=== PATIENT | male | born 1990 | race African-American/Black ===

== ENCOUNTER 2020-08-02 01:47 | Inpatient (IN) ==
[2020-08-02 02:06] LABS: Basophils # 0.1 10*3/uL (0.0-0.2); Basophils % 0.9 % (0.0-0.8); Eosinophils # 0.2 10*3/uL (0.0-0.87); Eosinophils % 3.9 % (0.00-10.9); Hematocrit 26.4 VOL% (42.0-52.0); Hemoglobin 8.4 GM/DL (14.0-18.0); Immature Granulocytes % 0.5 %; Immature Granulocytes Absolute 0.03 #; Lymphocytes # 1.7 10*3/uL (1.4-4.0); Lymphocytes % 30.7 % (21.2-54.2); Mean Corpuscular HGB Conc 31.8 GM/DL (32-36); Mean Corpuscular Volume 69.7 FL (87-102); Mean Platelet Volume 9.6 FL (9.6-12.0); Monocytes # 0.6 10*3/uL (0.11-0.8); Monocytes % 10.2 % (1.7-12.7); Neutrophils % 53.8 % (38.7-73.9); Platelet Count 393 T/CUMM (130-400); Red Blood Count 3.79 MC/CUMM (3.8-5.5); Red Cell Distribution Width 18.4 % (9.3-17.3); White Blood Count 5.7 T/CUMM (4-12)
[2020-08-02] MEDS ORDERED: hydrALAZINE 20 MG/1 ML VIAL IV STA ×2 (02:06→04:02)
[2020-08-02] MEDS ORDERED: MORPHINE 4 MG/1 ML VIAL IV STA (02:06)
[2020-08-02] MEDS ORDERED: ONDANSETRON 4 MG/2 ML VIAL IV STA (02:06)
[2020-08-02 02:17] LABS: INR 1.1; PT Patient Result 11.9 SECS (9.8-11.9); Partial Thromboplastin Time 35.3 SECS (23.9-33.8)
[2020-08-02] MEDS ORDERED: PROMETHAZINE 25 MG/1 ML VIAL IM STA (02:22)
[2020-08-02 02:40] LABS: Bilirubin,Total 0.5 MG/DL (0.2-1.0); Calcium 7.8 MG/DL (8.5-10.1); Osmolality,Calculated 288.1 MOS/KG (273-304); Potassium 4.6 MMOL/L (3.5-5.1); Total Protein 7.7 G/DL (6.4-8.3)
[2020-08-02 03:25] LABS: Hypochromia 3+; Ovalocytes 1+; Platelet Estimate Normal; Schistocytes Few; Target Cells 1+
[2020-08-02] MEDS ORDERED: HYDROmorphone 2 MG/1 ML VIAL IV STA (04:11)
[2020-08-02] MEDS ORDERED: DEXTROSE 50% 25 GM/50 ML VIAL IV PRN (04:42)
[2020-08-02] MEDS ORDERED: DOCUSATE SODIUM 100 MG CAPSULE PO PRN (04:42)
[2020-08-02] MEDS ORDERED: GLUCAGON 1 MG VIAL IM PRN (04:42)
[2020-08-02] MEDS ORDERED: ACETAMINOPHEN 325 MG TABLET PO PRN (04:42)
[2020-08-02] MEDS ORDERED: PROMETHAZINE 25 MG/1 ML VIAL ONE (09:16)
[2020-08-02] MEDS: MORPHINE 4 MG/1 ML VIAL IV PRN ×2 (09:32→18:56)
[2020-08-02] MEDS: PANTOPRAZOLE 40 MG TABLET PO SCH (09:32)
[2020-08-02] MEDS: hydrALAZINE 20 MG/1 ML VIAL IV PRN ×2 (09:32→16:50)
[2020-08-02 12:08] LABS: Hepatitis B Surface Ag Quant < 0.10 Index; Hepatitis B Surface Ag Result Negative (Negative)
[2020-08-02] MEDS: PROMETHAZINE 25 MG/1 ML VIAL IM PRN (20:56)
[2020-08-03] MEDS: MORPHINE 4 MG/1 ML VIAL IV PRN ×6 (00:24→23:47)
[2020-08-03] MEDS: hydrALAZINE 20 MG/1 ML VIAL IV PRN ×6 (00:26→16:49)
[2020-08-03 05:47] LABS: Basophils % 0.6 % (0.0-0.8); Eosinophils # 0.2 10*3/uL (0.0-0.87); Eosinophils % 3.5 % (0.00-10.9); Hematocrit 25.1 VOL% (42.0-52.0); Hemoglobin 7.8 GM/DL (14.0-18.0); Immature Granulocytes % 0.6 %; Immature Granulocytes Absolute 0.03 #; Lymphocytes # 1.6 10*3/uL (1.4-4.0); Lymphocytes % 29.2 % (21.2-54.2); Mean Corpuscular HGB Conc 31.1 GM/DL (32-36); Mean Corpuscular Volume 70.5 FL (87-102); Mean Platelet Volume 10.8 FL (9.6-12.0); Monocytes # 0.5 10*3/uL (0.11-0.8); Monocytes % 9.2 % (1.7-12.7); Neutrophils % 56.9 % (38.7-73.9); Platelet Count 335 T/CUMM (130-400); Red Blood Count 3.56 MC/CUMM (3.8-5.5); Red Cell Distribution Width 18.4 % (9.3-17.3); White Blood Count 5.4 T/CUMM (4-12)
[2020-08-03 06:15] LABS: Alanine Aminotransferase < 9 U/L (16-61); Albumin 1.8 G/DL (3.4-5.0); Alkaline Phosphatase 224 U/L (45-117); Aspartate Amino Transferase 29 U/L (0-37); Blood Urea Nitrogen 53 MG/DL (7-18); Calcium 7.8 MG/DL (8.5-10.1); Carbon Dioxide 23 MMOL/L (21-32); Chloride 102 MMOL/L (98-107); Estimated Glom Filtration Rate 11 ML/MIN; Glucose 97 MG/DL (74-106); Osmolality,Calculated 277.5 MOS/KG (273-304); Potassium 4.8 MMOL/L (3.5-5.1); Sodium 132 MMOL/L (136-145); Total Protein 7.8 G/DL (6.4-8.3)
[2020-08-03 08:42] LABS: Band Neutrophils 1 % (0-10); Eosinophils 9 % (0-10); Hypochromia 2+; Lymphocytes 25 % (20-55); Total Cells Counted 100
[2020-08-03 08:43] LABS: Microcytosis 1+; Platelet Estimate Normal; Target Cells Few
[2020-08-03] MEDS ORDERED: amLODIPine 5 MG TABLET PO SCH (09:00)
[2020-08-03] MEDS: lisinopriL 10 MG TABLET PO SCH (09:40)
[2020-08-03] MEDS: PANTOPRAZOLE 40 MG TABLET PO SCH (09:40)
[2020-08-03] MEDS: PROMETHAZINE 25 MG/1 ML VIAL IM PRN ×2 (13:23→23:46)
[2020-08-03] MEDS: ONDANSETRON 4 MG/2 ML VIAL IV PRN ×2 (16:53→21:23)
[2020-08-04] MEDS: MORPHINE 4 MG/1 ML VIAL IV PRN ×5 (05:10→23:24)
[2020-08-04] MEDS: PROMETHAZINE 25 MG/1 ML VIAL IM PRN ×3 (06:24→19:02)
[2020-08-04 07:35] LABS: Basophils % 0.4 % (0.0-0.8); Eosinophils # 0.2 10*3/uL (0.0-0.87); Eosinophils % 3.7 % (0.00-10.9); Hematocrit 25.8 VOL% (42.0-52.0); Hemoglobin 7.9 GM/DL (14.0-18.0); Immature Granulocytes % 0.2 %; Immature Granulocytes Absolute 0.01 #; Lymphocytes # 1.7 10*3/uL (1.4-4.0); Lymphocytes % 32.3 % (21.2-54.2); Mean Corpuscular HGB Conc 30.6 GM/DL (32-36); Mean Corpuscular Volume 71.7 FL (87-102); Mean Platelet Volume 9.7 FL (9.6-12.0); Monocytes # 0.6 10*3/uL (0.11-0.8); Monocytes % 10.2 % (1.7-12.7); Neutrophils % 53.2 % (38.7-73.9); Platelet Count 337 T/CUMM (130-400); Red Cell Distribution Width 18.5 % (9.3-17.3); White Blood Count 5.4 T/CUMM (4-12)
[2020-08-04 08:17] LABS: Calcium 8.1 MG/DL (8.5-10.1); Osmolality,Calculated 278.8 MOS/KG (273-304); Potassium 5.7 MMOL/L (3.5-5.1)
[2020-08-04] MEDS: lisinopriL 10 MG TABLET PO SCH (08:23)
[2020-08-04] MEDS: PANTOPRAZOLE 40 MG TABLET PO SCH (08:23)
[2020-08-04] MEDS: hydrALAZINE 20 MG/1 ML VIAL IV PRN (08:23)
[2020-08-04] MEDS ORDERED: SODIUM POLYSTYRENE SULFATE 15 GM/60 ML BOTTLE PO ONE (08:43)
[2020-08-04] MEDS ORDERED: hydrALAZINE 25 MG TABLET PO SCH (09:00)
[2020-08-04] MEDS: ONDANSETRON 4 MG/2 ML VIAL IV PRN (14:47)
[2020-08-04] MEDS: SPIRONOLACTONE/HCTZ 25-25 MG TABLET PO SCH (15:12)
[2020-08-04] MEDS ORDERED: amLODIPine 10 MG TABLET PO ONE (17:55)
[2020-08-05] MEDS: PROMETHAZINE 25 MG/1 ML VIAL IM PRN ×4 (01:54→23:16)
[2020-08-05] MEDS: MORPHINE 4 MG/1 ML VIAL IV PRN ×5 (03:18→21:33)
[2020-08-05] MEDS: ONDANSETRON 4 MG/2 ML VIAL IV PRN ×3 (03:23→12:18)
[2020-08-05 05:44] LABS: Basophils % 0.4 % (0.0-0.8); Eosinophils # 0.3 10*3/uL (0.0-0.87); Eosinophils % 4.5 % (0.00-10.9); Hematocrit 24.4 VOL% (42.0-52.0); Hemoglobin 7.6 GM/DL (14.0-18.0); Immature Granulocytes % 0.5 %; Immature Granulocytes Absolute 0.03 #; Lymphocytes # 1.6 10*3/uL (1.4-4.0); Lymphocytes % 28.1 % (21.2-54.2); Mean Corpuscular HGB Conc 31.1 GM/DL (32-36); Mean Corpuscular Volume 71.8 FL (87-102); Mean Platelet Volume 9.7 FL (9.6-12.0); Monocytes # 0.6 10*3/uL (0.11-0.8); Neutrophils % 56.5 % (38.7-73.9); Platelet Count 336 T/CUMM (130-400); Red Cell Distribution Width 18.4 % (9.3-17.3); White Blood Count 5.6 T/CUMM (4-12)
[2020-08-05 06:10] LABS: Calcium 7.8 MG/DL (8.5-10.1); Osmolality,Calculated 287.4 MOS/KG (273-304); Potassium 5.8 MMOL/L (3.5-5.1)
[2020-08-05 07:15] LABS: Hypochromia 4+; Microcytosis 3+; Platelet Estimate Normal; Polychromasia Slight; Target Cells 2+
[2020-08-05] MEDS: PANTOPRAZOLE 40 MG TABLET PO SCH (08:15)
[2020-08-05] MEDS: SPIRONOLACTONE/HCTZ 25-25 MG TABLET PO SCH ×2 (08:15→15:07)
[2020-08-05] MEDS: amLODIPine 10 MG TABLET PO SCH (08:15)
[2020-08-05] MEDS: MELATONIN 3 MG TABLET PO SCH (20:40)
[2020-08-06] MEDS: MORPHINE 4 MG/1 ML VIAL IV PRN ×5 (01:46→19:44)
[2020-08-06] MEDS: ONDANSETRON 4 MG/2 ML VIAL IV PRN ×3 (01:51→15:12)
[2020-08-06] MEDS: PROMETHAZINE 25 MG/1 ML VIAL IM PRN ×3 (05:29→19:48)
[2020-08-06 06:24] LABS: Basophils % 0.2 % (0.0-0.8); Eosinophils # 0.1 10*3/uL (0.0-0.87); Eosinophils % 2.8 % (0.00-10.9); Hematocrit 25.9 VOL% (42.0-52.0); Hemoglobin 7.7 GM/DL (14.0-18.0); Immature Granulocytes % 0.5 %; Immature Granulocytes Absolute 0.02 #; Lymphocytes # 1.2 10*3/uL (1.4-4.0); Lymphocytes % 27.9 % (21.2-54.2); Mean Corpuscular HGB Conc 29.7 GM/DL (32-36); Mean Corpuscular Volume 72.5 FL (87-102); Mean Platelet Volume 10.2 FL (9.6-12.0); Monocytes # 0.5 10*3/uL (0.11-0.8); Monocytes % 11.8 % (1.7-12.7); Neutrophils % 56.8 % (38.7-73.9); Platelet Count 316 T/CUMM (130-400); Red Blood Count 3.57 MC/CUMM (3.8-5.5); Red Cell Distribution Width 18.2 % (9.3-17.3); White Blood Count 4.3 T/CUMM (4-12)
[2020-08-06 06:36] LABS: Calcium 7.8 MG/DL (8.5-10.1); Osmolality,Calculated 284.1 MOS/KG (273-304)
[2020-08-06 06:58] LABS: Eosinophils 1 % (0-10); Hypochromia 2+; Lymphocytes 26 % (20-55); Microcytosis 1+; Ovalocytes Slight; Platelet Estimate Adequate; Total Cells Counted 100
[2020-08-06] MEDS: amLODIPine 10 MG TABLET PO SCH (08:10)
[2020-08-06] MEDS: PANTOPRAZOLE 40 MG TABLET PO SCH (08:10)
[2020-08-06] MEDS: SPIRONOLACTONE/HCTZ 25-25 MG TABLET PO SCH ×2 (08:11→16:32)
[2020-08-06] MEDS ORDERED: ALBUMIN 25% 12.5 GM/50 ML VIAL IV ONE (09:43)
[2020-08-06] MEDS ORDERED: ALBUMIN 25% 12.5 GM in PREMIX 1 EACH IV ONE (10:00)
[2020-08-06] MEDS ORDERED: SODIUM CHLORIDE 0.9% 1,000 ML IV PRN (10:16)
[2020-08-06] MEDS ORDERED: cefTRIAXone 1,000 MG in SYRINGE 1 EACH IV SCH (17:00)
[2020-08-06] MEDS: MELATONIN 3 MG TABLET PO SCH (20:22)
[2020-08-07] MEDS: MORPHINE 4 MG/1 ML VIAL IV PRN ×4 (00:47→13:59)
[2020-08-07] MEDS: PROMETHAZINE 25 MG/1 ML VIAL IM PRN ×2 (04:31→13:59)
[2020-08-07 06:45] LABS: % Iron Saturation 9.1 % (18-50); Ferritin 632.9 ng/ml (26-388)
[2020-08-07 07:11] LABS: Folate 5.8 NG/ML (5.4-24.0)
[2020-08-07] MEDS: ONDANSETRON 4 MG/2 ML VIAL IV PRN ×2 (08:13→15:43)
[2020-08-07] MEDS: amLODIPine 10 MG TABLET PO SCH (08:13)
[2020-08-07] MEDS: SPIRONOLACTONE/HCTZ 25-25 MG TABLET PO SCH ×3 (08:13→15:33)
[2020-08-07] MEDS: PANTOPRAZOLE 40 MG TABLET PO SCH (08:13)
[2020-08-07] MEDS: FERROUS SULFATE 325 MG TABLET PO SCH ×2 (08:21→16:05)
[2020-08-07] MEDS ORDERED: cefTRIAXone 1,000 MG in SYRINGE 1 EACH IV SCH (15:00)
[2020-08-07 16:45] VITALS: BP 159/96
[2020-08-07 19:08] LABS: HIV Antigen/Antibody Result Nonreactive (Nonreactive); Hepatitis B Surface Ab Result Positive
== END 2020-08-07 18:15 | disposition home or self-care (01) ==
LOC: EDUNIT# → N.3E 01:47 → N.ED 01:47 → SUATTDRO 04:18 → N.3E 05:05 → SUATTDRO 08-05 13:24
PROVIDERS: ADMIT Family Medicine; ATTEND Internal Medicine

== ENCOUNTER 2020-08-12 21:08 | Inpatient (IN) ==
[2020-08-12] MEDS ORDERED: hydrALAZINE 20 MG/1 ML VIAL IV STA (21:47)
[2020-08-12] MEDS ORDERED: ONDANSETRON 4 MG/2 ML VIAL IV STA (21:54)
[2020-08-12] MEDS ORDERED: MORPHINE 4 MG/1 ML VIAL IV STA (21:54)
[2020-08-12] MEDS ORDERED: NITROGLYCERIN 2% OINT 1 INCH/GM PACK TOP STA (21:55)
[2020-08-12] MEDS ORDERED: METOPROLOL TARTRATE 5 MG/5 ML VIAL IV STA (21:58)
[2020-08-12] MEDS ORDERED: METOPROLOL TARTRATE 5 MG/5 ML VIAL IV ONE (21:59)
[2020-08-12 22:02] LABS: Basophils % 0.5 % (0.0-0.8); Eosinophils # 0.2 10*3/uL (0.0-0.87); Eosinophils % 2.2 % (0.00-10.9); Hematocrit 31.5 VOL% (42.0-52.0); Hemoglobin 10.1 GM/DL (14.0-18.0); Immature Granulocytes % 0.8 %; Immature Granulocytes Absolute 0.06 #; Lymphocytes # 1.7 10*3/uL (1.4-4.0); Lymphocytes % 22.3 % (21.2-54.2); Mean Corpuscular HGB Conc 32.1 GM/DL (32-36); Mean Corpuscular Volume 70.9 FL (87-102); Mean Platelet Volume 9.6 FL (9.6-12.0); Neutrophils % 64.2 % (38.7-73.9); Platelet Count 328 T/CUMM (130-400); Red Blood Count 4.44 MC/CUMM (3.8-5.5); Red Cell Distribution Width 21.4 % (9.3-17.3); White Blood Count 7.6 T/CUMM (4-12)
[2020-08-12] MEDS ORDERED: PROMETHAZINE 25 MG/1 ML VIAL IM STA (22:03)
[2020-08-12 22:09] LABS: INR 1.4; PT Patient Result 14.8 SECS (9.8-11.9)
[2020-08-12 22:15] LABS: Alanine Aminotransferase < 9 U/L (16-61); Albumin 1.8 G/DL (3.4-5.0); Alkaline Phosphatase 252 U/L (45-117); Aspartate Amino Transferase 16 U/L (0-37); Blood Urea Nitrogen 75 MG/DL (7-18); Calcium 7.8 MG/DL (8.5-10.1); Estimated Glom Filtration Rate 8 ML/MIN; Glucose 81 MG/DL (74-106); Osmolality,Calculated 286.4 MOS/KG (273-304); Total Protein 8.4 G/DL (6.4-8.3)
[2020-08-12] MEDS ORDERED: MAGNESIUM SULF RIDER 2 GM in PREMIX 1 EACH IV STA (22:20)
[2020-08-13] MEDS ORDERED: PIPERACILLIN/TAZOBACTAM 3,375 MG in SODIUM CHLORIDE 0.9% 100 ML IV STA (00:11)
[2020-08-13] MEDS ORDERED: niCARdipine INJ 25 MG in SODIUM CHLORIDE 0.9% 240 ML IV PRN (00:15)
[2020-08-13] MEDS ORDERED: PIPERACILLIN/TAZOBACTAM 3,375 MG VIAL IV ONE (00:44)
[2020-08-13] MEDS ORDERED: niCARdipine 25 MG/10 ML VIAL IV ONE (00:44)
[2020-08-13] MEDS ORDERED: MORPHINE 4 MG/1 ML VIAL IV STA (01:28)
[2020-08-13] MEDS ORDERED: LABETALOL 20 MG/4 ML SYRINGE IV ONE (02:20)
[2020-08-13] MEDS ORDERED: LABETALOL 20 MG/4 ML SYRINGE IV STA (02:23)
[2020-08-13] MEDS ORDERED: GLUCAGON 1 MG VIAL IM PRN (03:46)
[2020-08-13] MEDS ORDERED: DEXTROSE 50% 25 GM/50 ML VIAL IV PRN (03:46)
[2020-08-13] MEDS ORDERED: NICOTINE 21 MG/24 HR PATCH TRANSDERM PRN (03:46)
[2020-08-13] MEDS ORDERED: LABETALOL 20 MG/4 ML SYRINGE IV PRN (03:54)
[2020-08-13] MEDS: MORPHINE 4 MG/1 ML VIAL IV PRN ×4 (05:23→22:18)
[2020-08-13] MEDS: INSULIN REGULAR 100 UNIT/ML SUBCUT SCH ×4 (08:52→22:25)
[2020-08-13] MEDS: METOPROLOL TARTRATE 25 MG TABLET PO SCH ×2 (10:24→21:11)
[2020-08-13] MEDS: amLODIPine 10 MG TABLET PO SCH (10:45)
[2020-08-13] MEDS: PIPERACILLIN/TAZOBACTAM 3,375 MG in SODIUM CHLORIDE 0.9% 100 ML IV SCH (14:41)
[2020-08-13] MEDS: SPIRONOLACTONE/HCTZ 25-25 MG TABLET PO SCH (15:06)
[2020-08-13] MEDS: ONDANSETRON 4 MG/2 ML VIAL IV PRN ×2 (15:06→23:26)
[2020-08-14] MEDS: PIPERACILLIN/TAZOBACTAM 3,375 MG in SODIUM CHLORIDE 0.9% 100 ML IV SCH ×2 (01:50→12:23)
[2020-08-14] MEDS: MORPHINE 4 MG/1 ML VIAL IV PRN ×4 (04:16→21:16)
[2020-08-14] MEDS: ONDANSETRON 4 MG/2 ML VIAL IV PRN ×4 (04:16→21:15)
[2020-08-14] MEDS: INSULIN REGULAR 100 UNIT/ML SUBCUT SCH ×4 (07:48→21:17)
[2020-08-14] MEDS: METOPROLOL TARTRATE 25 MG TABLET PO SCH ×2 (08:36→21:16)
[2020-08-14] MEDS: SPIRONOLACTONE/HCTZ 25-25 MG TABLET PO SCH ×2 (08:36→15:37)
[2020-08-14] MEDS: amLODIPine 10 MG TABLET PO SCH (08:36)
[2020-08-15] MEDS: PIPERACILLIN/TAZOBACTAM 3,375 MG in SODIUM CHLORIDE 0.9% 100 ML IV SCH ×2 (00:02→16:49)
[2020-08-15] MEDS: ONDANSETRON 4 MG/2 ML VIAL IV PRN ×2 (02:48→08:58)
[2020-08-15] MEDS: MORPHINE 4 MG/1 ML VIAL IV PRN ×4 (02:48→21:53)
[2020-08-15 05:54] LABS: Basophils # 0.1 10*3/uL (0.0-0.2); Basophils % 0.8 % (0.0-0.8); Eosinophils # 0.3 10*3/uL (0.0-0.87); Eosinophils % 4.4 % (0.00-10.9); Hematocrit 32.1 VOL% (42.0-52.0); Hemoglobin 10.1 GM/DL (14.0-18.0); Immature Granulocytes % 1.2 %; Immature Granulocytes Absolute 0.08 #; Lymphocytes # 1.7 10*3/uL (1.4-4.0); Lymphocytes % 25.8 % (21.2-54.2); Mean Corpuscular HGB Conc 31.5 GM/DL (32-36); Mean Corpuscular Volume 71.3 FL (87-102); Mean Platelet Volume 9.7 FL (9.6-12.0); Monocytes % 13.7 % (1.7-12.7); Neutrophils % 54.1 % (38.7-73.9); Platelet Count 367 T/CUMM (130-400); Red Cell Distribution Width 21.4 % (9.3-17.3); White Blood Count 6.5 T/CUMM (4-12)
[2020-08-15 06:13] LABS: Calcium 8.1 MG/DL (8.5-10.1); Osmolality,Calculated 278.4 MOS/KG (273-304)
[2020-08-15 06:19] LABS: Eosinophils 6 % (0-10); Lymphocytes 26 % (20-55); Segmented Neutrophils 56 % (50-85); Total Cells Counted 100
[2020-08-15 06:20] LABS: Hypochromasia 1+; Platelet Estimate Adequate; Target Cells Slight
[2020-08-15 06:21] LABS: Microcytosis Slight
[2020-08-15] MEDS: METOPROLOL TARTRATE 25 MG TABLET PO SCH ×2 (08:57→21:53)
[2020-08-15] MEDS: SPIRONOLACTONE/HCTZ 25-25 MG TABLET PO SCH ×2 (08:57→16:49)
[2020-08-15] MEDS: amLODIPine 10 MG TABLET PO SCH (08:58)
[2020-08-15] MEDS: INSULIN REGULAR 100 UNIT/ML SUBCUT SCH ×4 (09:03→21:53)
[2020-08-15] MEDS ORDERED: SODIUM POLYSTYRENE SULFATE 15 GM/60 ML BOTTLE PO STA (14:00)
[2020-08-15 16:03] LABS: Hepatitis B Core IgM Quant 0.06 Index; Hepatitis B Surface Ag Quant < 0.10 Index; Hepatitis B Surface Ag Result Negative (Negative); Hepatitis C Virus Ab Quant 0.04 Index; Hepatitis C Virus Ab Result Negative (Negative)
[2020-08-15] MEDS: PROMETHAZINE 25 MG/1 ML VIAL IM PRN ×2 (16:49→23:10)
[2020-08-16] MEDS: PIPERACILLIN/TAZOBACTAM 3,375 MG in SODIUM CHLORIDE 0.9% 100 ML IV SCH ×2 (03:13→12:19)
[2020-08-16] MEDS: MORPHINE 4 MG/1 ML VIAL IV PRN ×5 (03:13→23:35)
[2020-08-16] MEDS: PROMETHAZINE 25 MG/1 ML VIAL IM PRN ×3 (05:07→18:47)
[2020-08-16 05:48] LABS: Basophils % 0.4 % (0.0-0.8); Eosinophils # 0.3 10*3/uL (0.0-0.87); Hematocrit 28.8 VOL% (42.0-52.0); Hemoglobin 9.1 GM/DL (14.0-18.0); Immature Granulocytes % 0.8 %; Immature Granulocytes Absolute 0.04 #; Lymphocytes # 1.6 10*3/uL (1.4-4.0); Lymphocytes % 31.5 % (21.2-54.2); Mean Corpuscular HGB Conc 31.6 GM/DL (32-36); Mean Corpuscular Volume 71.6 FL (87-102); Mean Platelet Volume 10.1 FL (9.6-12.0); Monocytes % 10.7 % (1.7-12.7); Neutrophils % 51.6 % (38.7-73.9); Platelet Count 369 T/CUMM (130-400); Red Blood Count 4.02 MC/CUMM (3.8-5.5); Red Cell Distribution Width 21.2 % (9.3-17.3); White Blood Count 5.2 T/CUMM (4-12)
[2020-08-16 06:13] LABS: Eosinophils 5 % (0-10); Lymphocytes 35 % (20-55); Platelet Estimate Normal; Segmented Neutrophils 53 % (50-85); Total Cells Counted 100
[2020-08-16 06:14] LABS: Hypochromasia Slight; Microcytosis 1+
[2020-08-16] MEDS: ONDANSETRON 4 MG/2 ML VIAL IV PRN ×2 (07:29→21:50)
[2020-08-16] MEDS: INSULIN REGULAR 100 UNIT/ML SUBCUT SCH ×4 (07:58→23:35)
[2020-08-16] MEDS: amLODIPine 10 MG TABLET PO SCH (08:54)
[2020-08-16] MEDS: METOPROLOL TARTRATE 25 MG TABLET PO SCH ×2 (08:55→23:35)
[2020-08-16] MEDS: SPIRONOLACTONE/HCTZ 25-25 MG TABLET PO SCH ×2 (08:55→16:28)
[2020-08-17] MEDS: PROMETHAZINE 25 MG/1 ML VIAL IM PRN ×3 (05:33→18:12)
[2020-08-17] MEDS: MORPHINE 4 MG/1 ML VIAL IV PRN ×4 (05:33→21:24)
[2020-08-17 06:42] LABS: Basophils % 0.5 % (0.0-0.8); Eosinophils # 0.2 10*3/uL (0.0-0.87); Eosinophils % 3.5 % (0.00-10.9); Hematocrit 30.1 VOL% (42.0-52.0); Hemoglobin 9.3 GM/DL (14.0-18.0); Immature Granulocytes % 0.5 %; Immature Granulocytes Absolute 0.03 #; Lymphocytes # 1.8 10*3/uL (1.4-4.0); Mean Corpuscular HGB Conc 30.9 GM/DL (32-36); Mean Corpuscular Volume 72.5 FL (87-102); Mean Platelet Volume 9.5 FL (9.6-12.0); Monocytes % 10.3 % (1.7-12.7); Neutrophils % 53.2 % (38.7-73.9); Platelet Count 364 T/CUMM (130-400); Red Blood Count 4.15 MC/CUMM (3.8-5.5); Red Cell Distribution Width 21.5 % (9.3-17.3); White Blood Count 5.8 T/CUMM (4-12)
[2020-08-17 06:57] LABS: Calcium 8.1 MG/DL (8.5-10.1); Osmolality,Calculated 273.2 MOS/KG (273-304)
[2020-08-17 07:45] LABS: Eosinophils 1 % (0-10); Lymphocytes 35 % (20-55); Segmented Neutrophils 57 % (50-85); Total Cells Counted 100
[2020-08-17 07:46] LABS: Hypochromasia 4+; Microcytosis 2+; Ovalocytes Few; Platelet Estimate Normal; Polychromasia Slight; Reactive Lymphocytes Few; Schistocytes Slight; Target Cells Few; Tear Drop Cells Few
[2020-08-17] MEDS: INSULIN REGULAR 100 UNIT/ML SUBCUT SCH ×4 (10:04→21:26)
[2020-08-17] MEDS: SPIRONOLACTONE/HCTZ 25-25 MG TABLET PO SCH ×2 (10:05→15:50)
[2020-08-17] MEDS: METOPROLOL TARTRATE 25 MG TABLET PO SCH ×2 (10:06→21:26)
[2020-08-17] MEDS: amLODIPine 10 MG TABLET PO SCH (10:06)
[2020-08-17] MEDS: PIPERACILLIN/TAZOBACTAM 3,375 MG in SODIUM CHLORIDE 0.9% 100 ML IV SCH ×2 (14:47)
[2020-08-18] MEDS: PROMETHAZINE 25 MG/1 ML VIAL IM PRN ×3 (00:22→12:38)
[2020-08-18] MEDS: PIPERACILLIN/TAZOBACTAM 3,375 MG in SODIUM CHLORIDE 0.9% 100 ML IV SCH ×2 (00:22→12:40)
[2020-08-18] MEDS: MORPHINE 4 MG/1 ML VIAL IV PRN ×3 (03:36→12:36)
[2020-08-18] MEDS: ONDANSETRON 4 MG/2 ML VIAL IV PRN (03:37)
[2020-08-18 06:05] LABS: Basophils % 0.3 % (0.0-0.8); Eosinophils # 0.2 10*3/uL (0.0-0.87); Eosinophils % 2.5 % (0.00-10.9); Hematocrit 26.7 VOL% (42.0-52.0); Hemoglobin 8.2 GM/DL (14.0-18.0); Immature Granulocytes % 0.5 %; Immature Granulocytes Absolute 0.03 #; Lymphocytes # 1.8 10*3/uL (1.4-4.0); Lymphocytes % 29.5 % (21.2-54.2); Mean Corpuscular HGB Conc 30.7 GM/DL (32-36); Mean Platelet Volume 9.5 FL (9.6-12.0); Monocytes % 9.1 % (1.7-12.7); Neutrophils % 58.1 % (38.7-73.9); Platelet Count 289 T/CUMM (130-400); Red Blood Count 3.61 MC/CUMM (3.8-5.5); Red Cell Distribution Width 21.2 % (9.3-17.3); White Blood Count 6.1 T/CUMM (4-12)
[2020-08-18 06:35] LABS: Calcium 7.6 MG/DL (8.5-10.1); Osmolality,Calculated 272.2 MOS/KG (273-304)
[2020-08-18 07:42] LABS: Anisocytosis 1+; Band Neutrophils 2 % (0-10); Eosinophils 2 % (0-10); Hypochromasia 2+; Lymphocytes 30 % (20-55); Macrocytosis 1+; Platelet Estimate Normal; Segmented Neutrophils 55 % (50-85); Target Cells Few; Total Cells Counted 100
[2020-08-18] MEDS: INSULIN REGULAR 100 UNIT/ML SUBCUT SCH ×2 (08:46→12:35)
[2020-08-18] MEDS: SPIRONOLACTONE/HCTZ 25-25 MG TABLET PO SCH ×2 (08:47→15:28)
[2020-08-18] MEDS: amLODIPine 10 MG TABLET PO SCH (08:47)
[2020-08-18] MEDS: METOPROLOL TARTRATE 25 MG TABLET PO SCH (08:47)
[2020-08-18 13:17] VITALS: BP 133/64
== END 2020-08-18 16:55 | disposition home or self-care (01) | DRG 371 ==
LOC: EDBD → EDUNIT# → N.ED 21:08 → N.EDINP 08-13 03:46 → N.TELEN 08-13 04:21
PROVIDERS: ADMIT Emergency Medicine; ATTEND Emergency Medicine

== ENCOUNTER 2020-09-02 16:43 | Observation (INO) ==
[2020-09-02] MEDS ORDERED: SODIUM CHLORIDE 0.9% 1,000 ML IV STA (17:46)
[2020-09-02] MEDS ORDERED: ONDANSETRON 4 MG/2 ML VIAL IV STA (17:48)
[2020-09-02] MEDS ORDERED: MORPHINE 4 MG/1 ML VIAL IV STA ×2 (17:48→20:51)
[2020-09-02 18:00] LABS: Basophils # 0.1 10*3/uL (0.0-0.2); Basophils % 0.9 % (0.0-0.8); Eosinophils # 0.4 10*3/uL (0.0-0.87); Hematocrit 25.8 VOL% (42.0-52.0); Hemoglobin 7.7 GM/DL (14.0-18.0); Immature Granulocytes % 0.2 %; Immature Granulocytes Absolute 0.01 #; Lymphocytes # 2.2 10*3/uL (1.4-4.0); Lymphocytes % 37.9 % (21.2-54.2); Mean Corpuscular HGB Conc 29.8 GM/DL (32-36); Mean Corpuscular Volume 75.7 FL (87-102); Platelet Count 256 T/CUMM (130-400); Red Blood Count 3.41 MC/CUMM (3.8-5.5); Red Cell Distribution Width 22.5 % (9.3-17.3); White Blood Count 5.8 T/CUMM (4-12)
[2020-09-02] MEDS ORDERED: PROMETHAZINE 25 MG/1 ML VIAL ONE (18:10)
[2020-09-02] MEDS ORDERED: PROMETHAZINE INJ 12.5 MG in SODIUM CHLORIDE 0.9% 50 ML IV STA (18:13)
[2020-09-02 18:16] LABS: INR 1.4; PT Patient Result 14.3 SECS (9.8-11.9); Partial Thromboplastin Time 34.7 SECS (23.9-33.8)
[2020-09-02 18:23] LABS: Atypical Lymphocytes Few; Eosinophils 5 % (0-10); Lymphocytes 41 % (20-55); Platelet Estimate Adequate; Reactive Lymphocytes Few; Segmented Neutrophils 47 % (50-85); Total Cells Counted 100
[2020-09-02 18:24] LABS: Hypochromasia 2+; Microcytosis 2+; Target Cells 1+
[2020-09-02 18:25] LABS: Anisocytosis Slight; Schistocytes Few
[2020-09-02 18:32] LABS: Albumin 2.2 G/DL (3.4-5.0); Bilirubin,Total 0.6 MG/DL (0.2-1.0); Calcium 7.7 MG/DL (8.5-10.1); Osmolality,Calculated 277.4 MOS/KG (273-304); Potassium 4.9 MMOL/L (3.5-5.1); Total Protein 9.2 G/DL (6.4-8.3)
[2020-09-02] MEDS ORDERED: hydrALAZINE 20 MG/1 ML VIAL IV STA (19:20)
[2020-09-02] MEDS ORDERED: DILTIAZEM 50 MG/10 ML VIAL IV STA (20:51)
[2020-09-03] MEDS ORDERED: NICOTINE 21 MG/24 HR PATCH TRANSDERM PRN (00:02)
[2020-09-03] MEDS ORDERED: BISACODYL 5 MG TABLET PO PRN (00:02)
[2020-09-03] MEDS ORDERED: PROMETHAZINE 25 MG/1 ML VIAL IM PRN (00:02)
[2020-09-03] MEDS ORDERED: guaiFENesin/DM ER 600-30 MG TABLET PO PRN (00:02)
[2020-09-03] MEDS ORDERED: GLUCAGON 1 MG VIAL IM PRN (00:02)
[2020-09-03] MEDS ORDERED: DEXTROSE 50% 25 GM/50 ML VIAL IV PRN (00:02)
[2020-09-03] MEDS ORDERED: diphenhydrAMINE CAP 25 MG CAPSULE PO PRN (00:02)
[2020-09-03] MEDS ORDERED: ACETAMINOPHEN 325 MG TABLET PO PRN (00:02)
[2020-09-03] MEDS: ONDANSETRON 4 MG/2 ML VIAL IV PRN ×3 (01:30→12:46)
[2020-09-03] MEDS: MORPHINE 4 MG/1 ML VIAL IV PRN ×2 (01:31→21:43)
[2020-09-03] MEDS: hydrALAZINE 20 MG/1 ML VIAL IV PRN ×2 (02:40→15:38)
[2020-09-03] MEDS: cefTRIAXone 1,000 MG in SYRINGE 1 EACH IV SCH ×2 (03:36→23:50)
[2020-09-03] MEDS: metroNIDAZOLE INJ 500 MG in PREMIX 1 EACH IV SCH ×4 (03:37→23:50)
[2020-09-03] MEDS: METOPROLOL TARTRATE 25 MG TABLET PO SCH ×3 (03:37→21:21)
[2020-09-03] MEDS ORDERED: LABETALOL 20 MG/4 ML SYRINGE IV ONE (04:35)
[2020-09-03 05:29] LABS: Basophils # 0.1 10*3/uL (0.0-0.2); Basophils % 1.1 % (0.0-0.8); Eosinophils # 0.3 10*3/uL (0.0-0.87); Eosinophils % 5.5 % (0.00-10.9); Hematocrit 25.2 VOL% (42.0-52.0); Hemoglobin 7.9 GM/DL (14.0-18.0); Immature Granulocytes % 0.4 %; Immature Granulocytes Absolute 0.02 #; Lymphocytes # 2.1 10*3/uL (1.4-4.0); Lymphocytes % 38.5 % (21.2-54.2); Mean Corpuscular HGB Conc 31.3 GM/DL (32-36); Mean Corpuscular Volume 73.3 FL (87-102); Mean Platelet Volume 10.6 FL (9.6-12.0); Monocytes % 8.6 % (1.7-12.7); Neutrophils % 45.9 % (38.7-73.9); Platelet Count 283 T/CUMM (130-400); Red Blood Count 3.44 MC/CUMM (3.8-5.5); Red Cell Distribution Width 22.1 % (9.3-17.3); White Blood Count 5.5 T/CUMM (4-12)
[2020-09-03 05:57] LABS: Hypochromasia 2+
[2020-09-03 05:58] LABS: Anisocytosis 1+; Macrocytosis 1+; Ovalocytes Slight; Platelet Estimate Normal; Target Cells Few
[2020-09-03 06:09] LABS: Osmolality,Calculated 277.5 MOS/KG (273-304); Potassium 5.2 MMOL/L (3.5-5.1)
[2020-09-03] MEDS: amLODIPine 10 MG TABLET PO SCH (08:46)
[2020-09-03] MEDS: PANTOPRAZOLE 40 MG TABLET PO SCH (08:47)
[2020-09-04] MEDS: ONDANSETRON 4 MG/2 ML VIAL IV PRN ×2 (03:25→09:55)
[2020-09-04] MEDS: MORPHINE 4 MG/1 ML VIAL IV PRN (03:27)
[2020-09-04] MEDS: metroNIDAZOLE INJ 500 MG in PREMIX 1 EACH IV SCH ×2 (06:45→14:35)
[2020-09-04 07:31] LABS: Basophils % 0.7 % (0.0-0.8); Eosinophils # 0.5 10*3/uL (0.0-0.87); Eosinophils % 8.2 % (0.00-10.9); Hematocrit 24.8 VOL% (42.0-52.0); Hemoglobin 7.4 GM/DL (14.0-18.0); Immature Granulocytes % 0.2 %; Immature Granulocytes Absolute 0.01 #; Lymphocytes # 1.4 10*3/uL (1.4-4.0); Lymphocytes % 22.8 % (21.2-54.2); Mean Corpuscular HGB Conc 29.8 GM/DL (32-36); Mean Corpuscular Volume 75.4 FL (87-102); Monocytes % 8.7 % (1.7-12.7); Neutrophils % 59.4 % (38.7-73.9); Platelet Count 253 T/CUMM (130-400); Red Blood Count 3.29 MC/CUMM (3.8-5.5); Red Cell Distribution Width 22.1 % (9.3-17.3)
[2020-09-04 07:52] LABS: Band Neutrophils 2 % (0-10); Calcium 7.4 MG/DL (8.5-10.1); Eosinophils 9 % (0-10); Lymphocytes 15 % (20-55); Osmolality,Calculated 279.2 MOS/KG (273-304); Potassium 4.4 MMOL/L (3.5-5.1); Segmented Neutrophils 68 % (50-85); Total Cells Counted 100
[2020-09-04 07:53] LABS: Anisocytosis 2+; Hypochromasia 2+; Macrocytosis 1+; Platelet Estimate Normal; Polychromasia Slight; Target Cells Few
[2020-09-04 07:54] LABS: Poikilocytosis Slight
[2020-09-04] MEDS ORDERED: TISSUE ADHESIVE 1 EACH APPLICATOR TOP ONE (08:14)
[2020-09-04] MEDS: METOPROLOL TARTRATE 25 MG TABLET PO SCH (09:18)
[2020-09-04] MEDS: amLODIPine 10 MG TABLET PO SCH (09:18)
[2020-09-04] MEDS: PANTOPRAZOLE 40 MG TABLET PO SCH (09:18)
[2020-09-04 09:40] LABS: INR 1.4; PT Patient Result 14.6 SECS (9.8-11.9)
[2020-09-04] MEDS ORDERED: MAGNESIUM SULF RIDER 4 GM in PREMIX 1 EACH IV PRN (10:38)
[2020-09-04] MEDS ORDERED: MAGNESIUM SULF RIDER 2 GM in PREMIX 1 EACH IV PRN (10:38)
[2020-09-04 12:07] VITALS: BP 138/95
== END 2020-09-04 14:51 | disposition home or self-care (01) ==
LOC: N.ED 16:43 → N.EDINP 16:43 → N.TELEN 09-03 02:07
PROVIDERS: ADMIT Internal Medicine; ATTEND Internal Medicine

== ENCOUNTER 2020-09-13 06:06 | Observation (INO) ==
[2020-09-13] MEDS ORDERED: ONDANSETRON 4 MG/2 ML VIAL IV STA (06:32)
[2020-09-13] MEDS ORDERED: PROMETHAZINE 25 MG/1 ML VIAL IM STA (06:42)
[2020-09-13] MEDS ORDERED: PROMETHAZINE 25 MG/1 ML VIAL ONE (06:43)
[2020-09-13 06:49] LABS: Basophils % 0.4 % (0.0-0.8); Eosinophils # 0.2 10*3/uL (0.0-0.87); Eosinophils % 4.4 % (0.00-10.9); Hemoglobin 7.6 GM/DL (14.0-18.0); Immature Granulocytes % 0.2 %; Immature Granulocytes Absolute 0.01 #; Lymphocytes # 1.9 10*3/uL (1.4-4.0); Lymphocytes % 36.6 % (21.2-54.2); Mean Corpuscular HGB Conc 30.4 GM/DL (32-36); Mean Platelet Volume 9.6 FL (9.6-12.0); Monocytes % 10.4 % (1.7-12.7); Platelet Count 159 T/CUMM (130-400); Red Blood Count 3.38 MC/CUMM (3.8-5.5); Red Cell Distribution Width 21.5 % (9.3-17.3); White Blood Count 5.3 T/CUMM (4-12)
[2020-09-13 07:10] LABS: Eosinophils 8 % (0-10); Hypochromasia 1+; Lymphocytes 31 % (20-55); Microcytosis 1+; Platelet Estimate Normal; Segmented Neutrophils 51 % (50-85); Total Cells Counted 100
[2020-09-13 07:11] LABS: INR 1.3; PT Patient Result 13.8 SECS (9.8-11.9); Partial Thromboplastin Time 31.3 SECS (23.9-33.8)
[2020-09-13 07:12] LABS: Bilirubin,Total 0.6 MG/DL (0.2-1.0); Osmolality,Calculated 275.2 MOS/KG (273-304); Potassium 4.4 MMOL/L (3.5-5.1); Total Protein 8.8 G/DL (6.4-8.3)
[2020-09-13] MEDS ORDERED: TISSUE ADHESIVE 1 EACH APPLICATOR TOP ONE (07:49)
[2020-09-13] MEDS ORDERED: HYDROmorphone 2 MG/1 ML VIAL IV STA (08:04)
[2020-09-13] MEDS ORDERED: hydrALAZINE 20 MG/1 ML VIAL IV STA (08:35)
[2020-09-13] MEDS ORDERED: hydrALAZINE 20 MG/1 ML VIAL ONE (08:36)
[2020-09-13] MEDS ORDERED: NIFEdipine 10 MG CAPSULE PO SCH (09:00)
[2020-09-13] MEDS ORDERED: cefTRIAXone 1,000 MG in SODIUM CHLORIDE 0.9% 100 ML IV STA (09:22)
[2020-09-13] MEDS ORDERED: cefTRIAXone 1,000 MG in SYRINGE 1 EACH IV STA (09:31)
[2020-09-13 10:17] LABS: Neutrophils,Peritoneal Fluid 2 %; RBC,Peritoneal Fluid 5321 T/CUMM
[2020-09-13] MEDS ORDERED: PANTOPRAZOLE 40 MG TABLET PO STA (10:50)
[2020-09-13] MEDS: METOPROLOL TARTRATE 25 MG TABLET PO SCH ×2 (11:00→22:12)
[2020-09-13] MEDS: PANTOPRAZOLE 40 MG TABLET PO SCH (11:00)
[2020-09-13] MEDS ORDERED: DOCUSATE SODIUM 100 MG CAPSULE PO PRN (11:23)
[2020-09-13] MEDS ORDERED: DEXTROSE 50% 25 GM/50 ML VIAL IV PRN (11:23)
[2020-09-13] MEDS ORDERED: GLUCAGON 1 MG VIAL IM PRN (11:23)
[2020-09-13] MEDS: HYDROmorphone 2 MG/1 ML VIAL IV PRN ×2 (13:38→18:38)
[2020-09-13] MEDS: ONDANSETRON 4 MG/2 ML VIAL IV SCH ×2 (14:08→22:15)
[2020-09-13] MEDS: PROMETHAZINE 25 MG/1 ML VIAL IM PRN (18:43)
[2020-09-14] MEDS: PROMETHAZINE 25 MG/1 ML VIAL IM PRN ×2 (01:37→19:51)
[2020-09-14] MEDS: HYDROmorphone 2 MG/1 ML VIAL IV PRN ×4 (01:37→19:50)
[2020-09-14] MEDS: ONDANSETRON 4 MG/2 ML VIAL IV SCH ×3 (05:36→21:32)
[2020-09-14 05:45] LABS: Basophils % 0.7 % (0.0-0.8); Eosinophils # 0.3 10*3/uL (0.0-0.87); Eosinophils % 6.3 % (0.00-10.9); Hematocrit 25.9 VOL% (42.0-52.0); Immature Granulocytes % 0.2 %; Immature Granulocytes Absolute 0.01 #; Lymphocytes % 37.6 % (21.2-54.2); Mean Corpuscular HGB Conc 30.9 GM/DL (32-36); Mean Corpuscular Volume 73.6 FL (87-102); Mean Platelet Volume 9.9 FL (9.6-12.0); Monocytes % 10.9 % (1.7-12.7); Neutrophils % 44.3 % (38.7-73.9); Platelet Count 196 T/CUMM (130-400); Red Blood Count 3.52 MC/CUMM (3.8-5.5); Red Cell Distribution Width 21.1 % (9.3-17.3); White Blood Count 5.4 T/CUMM (4-12)
[2020-09-14 06:13] LABS: Alanine Aminotransferase < 6 U/L (16-61); Alkaline Phosphatase 210 U/L (45-117); Aspartate Amino Transferase 22 U/L (0-37); Blood Urea Nitrogen 45 MG/DL (7-18); Calcium 8.1 MG/DL (8.5-10.1); Carbon Dioxide 24 MMOL/L (21-32); Estimated Glom Filtration Rate 11 ML/MIN; Glucose 79 MG/DL (74-106); Osmolality,Calculated 276.4 MOS/KG (273-304); Potassium 4.9 MMOL/L (3.5-5.1); Sodium 133 MMOL/L (136-145); Total Protein 8.3 G/DL (6.4-8.3)
[2020-09-14 07:27] LABS: Eosinophils 5 % (0-10); Lymphocytes 34 % (20-55); Platelet Estimate Adequate; Polychromasia Slight; Segmented Neutrophils 50 % (50-85); Total Cells Counted 100
[2020-09-14 07:28] LABS: Hypochromasia 4+
[2020-09-14 07:29] LABS: Ovalocytes Few; Schistocytes Slight; Target Cells Few
[2020-09-14] MEDS: PANTOPRAZOLE 40 MG TABLET PO SCH (08:00)
[2020-09-14] MEDS: METOPROLOL TARTRATE 25 MG TABLET PO SCH ×2 (08:00→20:00)
[2020-09-14 16:12] LABS: Hepatitis B Core IgM Quant < 0.05 Index; Hepatitis B Surface Ag Quant < 0.10 Index; Hepatitis B Surface Ag Result Non-Reactive (NonReactive); Hepatitis C Virus Ab Quant 0.17 Index; Hepatitis C Virus Ab Result Non-Reactive (NonReactive)
[2020-09-15] MEDS: PROMETHAZINE 25 MG/1 ML VIAL IM PRN ×3 (01:49→14:19)
[2020-09-15] MEDS: HYDROmorphone 2 MG/1 ML VIAL IV PRN ×3 (01:49→12:33)
[2020-09-15 06:18] LABS: Calcium 7.8 MG/DL (8.5-10.1); Osmolality,Calculated 280.1 MOS/KG (273-304)
[2020-09-15] MEDS: ONDANSETRON 4 MG/2 ML VIAL IV SCH ×2 (06:41→13:36)
[2020-09-15] MEDS: PANTOPRAZOLE 40 MG TABLET PO SCH (08:33)
[2020-09-15] MEDS: METOPROLOL TARTRATE 25 MG TABLET PO SCH (08:33)
[2020-09-15 12:16] VITALS: BP 150/99
== END 2020-09-15 16:03 | disposition home or self-care (01) ==
LOC: N.EDINP 06:06 → N.ED 06:06 → N.TELEN 14:21
PROVIDERS: ADMIT Family Medicine; ATTEND Family Medicine

== ENCOUNTER 2020-09-21 17:58 | Inpatient (IN) ==
[2020-09-21 21:11] LABS: Basophils % 0.2 % (0.0-0.8); Eosinophils # 0.1 10*3/uL (0.0-0.87); Eosinophils % 1.2 % (0.00-10.9); Hematocrit 19.8 VOL% (42.0-52.0); Immature Granulocytes % 0.4 %; Immature Granulocytes Absolute 0.02 #; Lymphocytes # 1.3 10*3/uL (1.4-4.0); Lymphocytes % 26.6 % (21.2-54.2); Mean Corpuscular HGB Conc 31.8 GM/DL (32-36); Mean Corpuscular Volume 72.5 FL (87-102); Mean Platelet Volume 9.7 FL (9.6-12.0); Neutrophils % 65.6 % (38.7-73.9); Platelet Count 248 T/CUMM (130-400); Red Blood Count 2.73 MC/CUMM (3.8-5.5); Red Cell Distribution Width 19.9 % (9.3-17.3)
[2020-09-21 21:13] LABS: Hemoglobin 6.3 GM/DL (14.0-18.0)
[2020-09-21 21:43] LABS: Albumin 1.9 G/DL (3.4-5.0); Bilirubin,Total 0.4 MG/DL (0.2-1.0); Calcium 6.5 MG/DL (8.5-10.1); Ferritin 749.4 ng/ml (26-388); Osmolality,Calculated 272.4 MOS/KG (273-304); Potassium 4.6 MMOL/L (3.5-5.1)
[2020-09-21] MEDS ORDERED: SODIUM CHLORIDE 0.9% 1,000 ML IV PRN (22:11)
[2020-09-21] MEDS ORDERED: ONDANSETRON 4 MG/2 ML VIAL IV ONE (22:30)
[2020-09-21] MEDS ORDERED: LABETALOL 20 MG/4 ML SYRINGE IV STA (22:30)
[2020-09-21] MEDS ORDERED: MORPHINE 4 MG/1 ML VIAL IV STA (22:30)
[2020-09-21] MEDS ORDERED: diphenhydrAMINE CAP 25 MG CAPSULE PO PRN (22:32)
[2020-09-21] MEDS ORDERED: ZALEPLON 5 MG CAPSULE PO PRN (22:32)
[2020-09-21] MEDS ORDERED: GLUCAGON 1 MG VIAL IM PRN (22:32)
[2020-09-21] MEDS ORDERED: DEXTROSE 50% 25 GM/50 ML VIAL IV PRN (22:32)
[2020-09-21] MEDS ORDERED: ACETAMINOPHEN 325 MG TABLET PO PRN (22:32)
[2020-09-21] MEDS ORDERED: NICOTINE 21 MG/24 HR PATCH TRANSDERM PRN (22:32)
[2020-09-21] MEDS ORDERED: guaiFENesin/DM ER 600-30 MG TABLET PO PRN (22:32)
[2020-09-22] MEDS: MORPHINE 4 MG/1 ML VIAL IV PRN ×4 (02:37→19:45)
[2020-09-22 07:23] LABS: Basophils % 0.2 % (0.0-0.8); Eosinophils # 0.1 10*3/uL (0.0-0.87); Eosinophils % 1.9 % (0.00-10.9); Hematocrit 20.3 VOL% (42.0-52.0); Immature Granulocytes % 0.5 %; Immature Granulocytes Absolute 0.02 #; Lymphocytes # 1.3 10*3/uL (1.4-4.0); Lymphocytes % 29.4 % (21.2-54.2); Mean Corpuscular HGB Conc 31.5 GM/DL (32-36); Mean Corpuscular Volume 73.8 FL (87-102); Mean Platelet Volume 10.4 FL (9.6-12.0); Monocytes % 6.5 % (1.7-12.7); Neutrophils % 61.5 % (38.7-73.9); Platelet Count 228 T/CUMM (130-400); Red Blood Count 2.75 MC/CUMM (3.8-5.5); Red Cell Distribution Width 19.9 % (9.3-17.3); White Blood Count 4.3 T/CUMM (4-12)
[2020-09-22 07:26] LABS: Hemoglobin 6.4 GM/DL (14.0-18.0)
[2020-09-22] MEDS: ONDANSETRON 4 MG/2 ML VIAL IV PRN ×2 (07:32→15:33)
[2020-09-22 07:34] LABS: INR 1.2; PT Patient Result 12.8 SECS (9.8-11.9); Partial Thromboplastin Time 34.4 SECS (23.9-33.8)
[2020-09-22 07:45] LABS: Albumin 1.8 G/DL (3.4-5.0); Bilirubin,Total 0.4 MG/DL (0.2-1.0); Calcium 6.7 MG/DL (8.5-10.1); Eosinophils 1 % (0-10); Lymphocytes 19 % (20-55); Osmolality,Calculated 273.5 MOS/KG (273-304); Platelet Estimate Normal; Potassium 4.7 MMOL/L (3.5-5.1); Segmented Neutrophils 73 % (50-85); Total Cells Counted 100; Total Protein 7.3 G/DL (6.4-8.3)
[2020-09-22 07:46] LABS: Hypochromasia 1+; Microcytosis Slight; Target Cells Few
[2020-09-22] MEDS: AZITHROMYCIN INJ 500 MG in SODIUM CHLORIDE 0.9% 250 ML IV SCH (08:59)
[2020-09-22] MEDS: cefTRIAXone 1,000 MG in SYRINGE 1 EACH IV SCH (08:59)
[2020-09-22] MEDS: METOPROLOL TARTRATE 25 MG TABLET PO SCH ×2 (08:59→19:59)
[2020-09-22] MEDS: PANTOPRAZOLE 40 MG TABLET PO SCH (08:59)
[2020-09-22] MEDS ORDERED: SODIUM CHLORIDE 0.9% 1,000 ML IV PRN ×2 (10:27→10:29)
[2020-09-22] MEDS: PROMETHAZINE 25 MG/1 ML VIAL IM PRN ×2 (10:57→19:45)
[2020-09-22] MEDS: hydrALAZINE 20 MG/1 ML VIAL IV PRN (16:42)
[2020-09-22 19:52] LABS: Hematocrit 31.8 VOL% (42.0-52.0); Hemoglobin 9.8 GM/DL (14.0-18.0)
[2020-09-23] MEDS: PROMETHAZINE 25 MG/1 ML VIAL IM PRN ×2 (00:55→11:59)
[2020-09-23] MEDS: MORPHINE 4 MG/1 ML VIAL IV PRN ×2 (02:54→09:38)
[2020-09-23 06:52] LABS: Basophils % 0.3 % (0.0-0.8); Eosinophils # 0.1 10*3/uL (0.0-0.87); Eosinophils % 2.8 % (0.00-10.9); Hematocrit 26.9 VOL% (42.0-52.0); Hemoglobin 8.4 GM/DL (14.0-18.0); Immature Granulocytes % 0.3 %; Immature Granulocytes Absolute 0.01 #; Lymphocytes # 1.3 10*3/uL (1.4-4.0); Lymphocytes % 32.7 % (21.2-54.2); Mean Corpuscular HGB Conc 31.2 GM/DL (32-36); Mean Corpuscular Volume 78.2 FL (87-102); Mean Platelet Volume 9.3 FL (9.6-12.0); Monocytes % 8.6 % (1.7-12.7); Neutrophils % 55.3 % (38.7-73.9); Platelet Count 245 T/CUMM (130-400); Red Blood Count 3.44 MC/CUMM (3.8-5.5); Red Cell Distribution Width 20.8 % (9.3-17.3); White Blood Count 3.9 T/CUMM (4-12)
[2020-09-23 07:16] LABS: Hypochromasia 1+; Microcytosis 1+; Platelet Estimate Adequate
[2020-09-23] MEDS: ONDANSETRON 4 MG/2 ML VIAL IV PRN (08:03)
[2020-09-23] MEDS: cefTRIAXone 1,000 MG in SYRINGE 1 EACH IV SCH ×2 (10:30→10:42)
[2020-09-23] MEDS: PANTOPRAZOLE 40 MG TABLET PO SCH (10:41)
[2020-09-23] MEDS: hydrALAZINE 25 MG TABLET PO SCH ×3 (10:42→21:03)
[2020-09-23] MEDS: METOPROLOL TARTRATE 25 MG TABLET PO SCH ×2 (10:42→21:03)
[2020-09-23] MEDS: AZITHROMYCIN INJ 500 MG in SODIUM CHLORIDE 0.9% 250 ML IV SCH (10:43)
[2020-09-24 05:52] LABS: Basophils % 0.4 % (0.0-0.8); Eosinophils # 0.2 10*3/uL (0.0-0.87); Eosinophils % 4.3 % (0.00-10.9); Hematocrit 31.8 VOL% (42.0-52.0); Hemoglobin 9.5 GM/DL (14.0-18.0); Immature Granulocytes % 0.6 %; Immature Granulocytes Absolute 0.03 #; Lymphocytes # 1.9 10*3/uL (1.4-4.0); Lymphocytes % 37.5 % (21.2-54.2); Mean Corpuscular HGB Conc 29.9 GM/DL (32-36); Mean Platelet Volume 9.6 FL (9.6-12.0); Monocytes % 6.7 % (1.7-12.7); Neutrophils % 50.5 % (38.7-73.9); Platelet Count 292 T/CUMM (130-400); Red Blood Count 3.88 MC/CUMM (3.8-5.5); Red Cell Distribution Width 22.2 % (9.3-17.3); White Blood Count 5.1 T/CUMM (4-12)
[2020-09-24 06:02] LABS: Calcium 7.5 MG/DL (8.5-10.1); Osmolality,Calculated 265.6 MOS/KG (273-304)
[2020-09-24 06:19] LABS: Anisocytosis 1+; Eosinophils 1 % (0-10); Hypochromasia 1+; Lymphocytes 29 % (20-55); Microcytosis 1+; Potassium 6.2 MMOL/L (3.5-5.1); Segmented Neutrophils 61 % (50-85); Total Cells Counted 100
[2020-09-24 06:20] LABS: Platelet Estimate Normal
[2020-09-24] MEDS ORDERED: SODIUM POLYSTYRENE SULFATE 15 GM/60 ML BOTTLE PO ONE (07:43)
[2020-09-24] MEDS: AZITHROMYCIN INJ 500 MG in SODIUM CHLORIDE 0.9% 250 ML IV SCH (08:42)
[2020-09-24] MEDS: METOPROLOL TARTRATE 25 MG TABLET PO SCH ×2 (08:42→20:57)
[2020-09-24] MEDS: PANTOPRAZOLE 40 MG TABLET PO SCH (08:42)
[2020-09-24] MEDS: hydrALAZINE 25 MG TABLET PO SCH ×3 (08:42→20:57)
[2020-09-24] MEDS: ONDANSETRON 4 MG/2 ML VIAL IV PRN (10:05)
[2020-09-24] MEDS: hydrALAZINE 20 MG/1 ML VIAL IV PRN (18:42)
[2020-09-24 19:08] LABS: Hepatitis B Core IgM Quant 0.12 Index; Hepatitis B Surface Ag Quant < 0.10 Index; Hepatitis B Surface Ag Result Non-Reactive (NonReactive); Hepatitis C Virus Ab Quant 0.15 Index; Hepatitis C Virus Ab Result Non-Reactive (NonReactive)
[2020-09-25] MEDS: hydrALAZINE 25 MG TABLET PO SCH ×3 (08:41→21:36)
[2020-09-25] MEDS: METOPROLOL TARTRATE 25 MG TABLET PO SCH ×2 (08:42→21:36)
[2020-09-25] MEDS: PANTOPRAZOLE 40 MG TABLET PO SCH (08:42)
[2020-09-25] MEDS: AZITHROMYCIN INJ 500 MG in SODIUM CHLORIDE 0.9% 250 ML IV SCH (08:50)
[2020-09-25] MEDS: ONDANSETRON 4 MG/2 ML VIAL IV PRN ×2 (10:13→16:55)
[2020-09-25 10:27] LABS: Blood Urea Nitrogen 43 MG/DL (7-18); Carbon Dioxide 15 MMOL/L (21-32); Estimated Glom Filtration Rate 24 ML/MIN; Glucose 55 MG/DL (74-106); Potassium 3.1 MMOL/L (3.5-5.1); Sodium 143 MMOL/L (136-145)
[2020-09-25 10:28] LABS: Calcium < 5.0 MG/DL (8.5-10.1)
[2020-09-25] MEDS: PROMETHAZINE 25 MG/1 ML VIAL IM PRN (10:53)
[2020-09-25 13:23] LABS: Hematocrit 25.7 VOL% (42.0-52.0); Hemoglobin 7.9 GM/DL (14.0-18.0)
[2020-09-25 13:47] LABS: Calcium 7.2 MG/DL (8.5-10.1); Osmolality,Calculated 271.4 MOS/KG (273-304); Potassium 5.2 MMOL/L (3.5-5.1)
[2020-09-25] MEDS ORDERED: SODIUM CHLORIDE 0.9% 1,000 ML IV PRN (13:57)
[2020-09-26] MEDS: hydrALAZINE 20 MG/1 ML VIAL IV PRN (00:33)
[2020-09-26] MEDS: ONDANSETRON 4 MG/2 ML VIAL IV PRN ×2 (06:05→10:19)
[2020-09-26 06:24] LABS: Basophils % 0.2 % (0.0-0.8); Eosinophils # 0.3 10*3/uL (0.0-0.87); Eosinophils % 6.6 % (0.00-10.9); Hematocrit 23.7 VOL% (42.0-52.0); Hemoglobin 7.4 GM/DL (14.0-18.0); Immature Granulocytes % 0.2 %; Immature Granulocytes Absolute 0.01 #; Lymphocytes # 1.6 10*3/uL (1.4-4.0); Lymphocytes % 36.3 % (21.2-54.2); Mean Corpuscular HGB Conc 31.2 GM/DL (32-36); Mean Corpuscular Volume 77.5 FL (87-102); Mean Platelet Volume 10.3 FL (9.6-12.0); Monocytes % 9.5 % (1.7-12.7); Neutrophils % 47.2 % (38.7-73.9); Platelet Count 274 T/CUMM (130-400); Red Blood Count 3.06 MC/CUMM (3.8-5.5); Red Cell Distribution Width 21.7 % (9.3-17.3); White Blood Count 4.4 T/CUMM (4-12)
[2020-09-26 07:07] LABS: Atypical Lymphocytes Few; Eosinophils 7 % (0-10); Hypochromasia 2+; Lymphocytes 34 % (20-55); Microcytosis 1+; Segmented Neutrophils 53 % (50-85); Target Cells Slight; Total Cells Counted 100
[2020-09-26 07:08] LABS: Ovalocytes Slight; Platelet Estimate Normal
[2020-09-26 07:14] LABS: Osmolality,Calculated 275.6 MOS/KG (273-304); Potassium 5.1 MMOL/L (3.5-5.1)
[2020-09-26] MEDS: hydrALAZINE 25 MG TABLET PO SCH ×2 (08:49→16:28)
[2020-09-26] MEDS: METOPROLOL TARTRATE 25 MG TABLET PO SCH (08:50)
[2020-09-26] MEDS: PANTOPRAZOLE 40 MG TABLET PO SCH (08:50)
[2020-09-26] MEDS: AZITHROMYCIN INJ 500 MG in SODIUM CHLORIDE 0.9% 250 ML IV SCH (08:51)
[2020-09-26 15:38] VITALS: BP 174/99
== END 2020-09-26 17:30 | disposition home or self-care (01) | DRG 811 ==
LOC: N.EDINP 17:58 → N.ED 17:58 → INTOOBSV 22:32 → OBSVTOIN 22:32 → N.2E 22:46 → N.EDINP 23:00
PROVIDERS: ADMIT Internal Medicine; ATTEND Internal Medicine

== ENCOUNTER 2020-10-13 14:18 | Observation (INO) ==
[2020-10-13] MEDS ORDERED: hydrALAZINE 20 MG/1 ML VIAL IV PRN (15:49)
[2020-10-13] MEDS ORDERED: GLUCAGON 1 MG VIAL IM PRN (15:49)
[2020-10-13] MEDS ORDERED: ACETAMINOPHEN 325 MG TABLET PO PRN (15:49)
[2020-10-13] MEDS ORDERED: ALBUTEROL 2.5 MG/3 ML NEB RESP TX PRN (15:49)
[2020-10-13] MEDS ORDERED: guaiFENesin/DM ER 600-30 MG TABLET PO PRN (15:49)
[2020-10-13] MEDS ORDERED: DEXTROSE 50% 25 GM/50 ML VIAL IV PRN (15:49)
[2020-10-13] MEDS ORDERED: DOCUSATE SODIUM 100 MG CAPSULE PO PRN (15:49)
[2020-10-13] MEDS ORDERED: ONDANSETRON 4 MG/2 ML VIAL IV PRN (15:49)
[2020-10-13] MEDS ORDERED: METOPROLOL TARTRATE 50 MG TABLET PO STA (15:55)
[2020-10-13 16:50] LABS: Basophils % 0.3 % (0.0-0.8); Eosinophils # 0.3 10*3/uL (0.0-0.87); Eosinophils % 6.8 % (0.00-10.9); Hemoglobin 6.7 GM/DL (14.0-18.0); Immature Granulocytes % 0.3 %; Immature Granulocytes Absolute 0.01 #; Lymphocytes # 1.4 10*3/uL (1.4-4.0); Lymphocytes % 37.5 % (21.2-54.2); Mean Corpuscular HGB Conc 30.5 GM/DL (32-36); Mean Corpuscular Volume 83.7 FL (87-102); Mean Platelet Volume 10.2 FL (9.6-12.0); Monocytes % 10.3 % (1.7-12.7); Neutrophils % 44.8 % (38.7-73.9); Platelet Count 191 T/CUMM (130-400); Red Blood Count 2.63 MC/CUMM (3.8-5.5); White Blood Count 3.7 T/CUMM (4-12)
[2020-10-13 17:04] LABS: Bilirubin,Total 0.9 MG/DL (0.2-1.0); Calcium 7.7 MG/DL (8.5-10.1); Potassium 3.7 MMOL/L (3.5-5.1); Total Protein 7.6 G/DL (5.0-7.5)
[2020-10-13] MEDS ORDERED: SODIUM CHLORIDE 0.9% 1,000 ML IV PRN (17:33)
[2020-10-13 18:13] LABS: Eosinophils 5 % (0-10); Lymphocytes 30 % (20-55); Segmented Neutrophils 59 % (50-85); Total Cells Counted 100
[2020-10-13 18:14] LABS: Anisocytosis 2+; Hypochromasia 2+; Macrocytosis 1+; Microcytosis 1+
[2020-10-13 18:15] LABS: Platelet Estimate Normal; Poikilocytosis 2+; Polychromasia 1+
[2020-10-13] MEDS: MORPHINE 4 MG/1 ML VIAL IV PRN (20:40)
[2020-10-14] MEDS: MORPHINE 4 MG/1 ML VIAL IV PRN ×2 (03:52→08:21)
[2020-10-14 05:49] LABS: Basophils % 0.4 % (0.0-0.8); Eosinophils # 0.4 10*3/uL (0.0-0.87); Hematocrit 24.3 VOL% (42.0-52.0); Hemoglobin 7.6 GM/DL (14.0-18.0); Immature Granulocytes % 0.2 %; Immature Granulocytes Absolute 0.01 #; Lymphocytes # 1.6 10*3/uL (1.4-4.0); Lymphocytes % 32.8 % (21.2-54.2); Mean Corpuscular HGB Conc 31.3 GM/DL (32-36); Mean Corpuscular Volume 82.1 FL (87-102); Mean Platelet Volume 9.6 FL (9.6-12.0); Monocytes % 10.7 % (1.7-12.7); Neutrophils % 47.9 % (38.7-73.9); Platelet Count 220 T/CUMM (130-400); Red Blood Count 2.96 MC/CUMM (3.8-5.5); Red Cell Distribution Width 19.9 % (9.3-17.3); White Blood Count 4.9 T/CUMM (4-12)
[2020-10-14 06:04] LABS: Alanine Aminotransferase < 6 U/L (16-61); Albumin 2.2 G/DL (3.4-5.0); Alkaline Phosphatase 191 U/L (45-117); Aspartate Amino Transferase 17 U/L (0-37); Blood Urea Nitrogen 27 MG/DL (7-18); Calcium 8.4 MG/DL (8.5-10.1); Carbon Dioxide 25 MMOL/L (21-32); Estimated Glom Filtration Rate 13 ML/MIN; Glucose 86 MG/DL (74-106); HDL Cholesterol 40 MG/DL (40-60); Osmolality,Calculated 271.2 MOS/KG (273-304); Potassium 3.7 MMOL/L (3.5-5.1); Risk Ratio 3.55; Sodium 134 MMOL/L (136-145); Total Protein 8.3 G/DL (5.0-7.5); Triglycerides 121 MG/DL (2-150); VLDL CHOLESTEROL 24.2 MG/DL
[2020-10-14] MEDS ORDERED: hydrALAZINE 25 MG TABLET PO SCH (07:47)
[2020-10-14 07:59] LABS: Band Neutrophils 3 % (0-10); Eosinophils 5 % (0-10); Lymphocytes 25 % (20-55); Segmented Neutrophils 56 % (50-85); Total Cells Counted 100
[2020-10-14 08:00] LABS: Anisocytosis 2+; Hypochromasia 1+; Platelet Estimate Normal
[2020-10-14 08:01] LABS: Poikilocytosis Slight
[2020-10-14] MEDS ORDERED: PANTOPRAZOLE 40 MG TABLET PO SCH (09:00)
[2020-10-14] MEDS ORDERED: METOPROLOL SUCCINATE XL 50 MG TABLET PO SCH ×2 (09:10→21:00)
[2020-10-14] MEDS ORDERED: TISSUE ADHESIVE 1 EACH APPLICATOR TOP ONE (09:16)
[2020-10-14 11:38] VITALS: BP 128/78
== END 2020-10-14 15:21 | disposition home or self-care (01) ==
LOC: N.3E
PROVIDERS: ADMIT Internal Medicine; ATTEND Internal Medicine

== ENCOUNTER 2020-10-30 21:10 | Inpatient (IN) ==
[2020-10-30 22:03] LABS: Basophils % 0.5 % (0.0-0.8); Eosinophils # 0.2 10*3/uL (0.0-0.87); Eosinophils % 4.2 % (0.00-10.9); Hematocrit 26.5 VOL% (42.0-52.0); Immature Granulocytes % 0.2 %; Immature Granulocytes Absolute 0.01 #; Lymphocytes # 1.4 10*3/uL (1.4-4.0); Lymphocytes % 32.2 % (21.2-54.2); Mean Corpuscular HGB Conc 30.2 GM/DL (32-36); Mean Corpuscular Volume 78.9 FL (87-102); Mean Platelet Volume 10.3 FL (9.6-12.0); Monocytes % 12.9 % (1.7-12.7); Platelet Count 211 T/CUMM (130-400); Red Blood Count 3.36 MC/CUMM (3.8-5.5); Red Cell Distribution Width 18.6 % (9.3-17.3); White Blood Count 4.3 T/CUMM (4-12)
[2020-10-30] MEDS ORDERED: MORPHINE 4 MG/1 ML VIAL ONE (22:16)
[2020-10-30] MEDS ORDERED: ONDANSETRON 4 MG/2 ML VIAL ONE (22:16)
[2020-10-30 22:19] LABS: Alanine Aminotransferase < 9 U/L (16-61); Albumin 2.1 G/DL (3.4-5.0); Alkaline Phosphatase 190 U/L (45-117); Amylase 107 U/L (25-115); Aspartate Amino Transferase 21 U/L (0-37); Blood Urea Nitrogen 50 MG/DL (7-18); Calcium 7.5 MG/DL (8.5-10.1); Carbon Dioxide 29 MMOL/L (21-32); Estimated Glom Filtration Rate 11 ML/MIN; Glucose 92 MG/DL (74-106); Osmolality,Calculated 278.4 MOS/KG (273-304); Potassium 3.6 MMOL/L (3.5-5.1); Sodium 133 MMOL/L (136-145); Total Protein 7.4 G/DL (6.4-8.2)
[2020-10-30] MEDS ORDERED: MORPHINE 4 MG/1 ML VIAL IV STA (22:21)
[2020-10-30] MEDS ORDERED: ONDANSETRON 4 MG/2 ML VIAL IV STA (22:22)
[2020-10-30 22:37] LABS: Eosinophils 4 % (0-10); Lymphocytes 28 % (20-55); Segmented Neutrophils 62 % (50-85); Total Cells Counted 100
[2020-10-30 22:39] LABS: Anisocytosis 2+; Atypical Lymphocytes Moderate; Hypochromasia 2+; Macrocytosis 1+; Microcytosis 1+; Ovalocytes Slight
[2020-10-30 22:40] LABS: Platelet Estimate Adequate; Polychromasia Few; Schistocytes Slight; Stomatocytes Few
[2020-10-30] MEDS ORDERED: PROMETHAZINE 25 MG/1 ML VIAL ONE (23:10)
[2020-10-30] MEDS ORDERED: PROMETHAZINE 25 MG/1 ML VIAL IM STA (23:10)
[2020-10-31] MEDS ORDERED: HYDROmorphone 2 MG/1 ML VIAL ONE (00:45)
[2020-10-31] MEDS ORDERED: HYDROmorphone 2 MG/1 ML VIAL IV STA (00:51)
[2020-10-31] MEDS ORDERED: hydrALAZINE 20 MG/1 ML VIAL IV PRN (01:08)
[2020-10-31] MEDS ORDERED: GLUCAGON 1 MG VIAL IM PRN (01:08)
[2020-10-31] MEDS ORDERED: NICOTINE 21 MG/24 HR PATCH TRANSDERM PRN (01:08)
[2020-10-31] MEDS ORDERED: DEXTROSE 50% 25 GM/50 ML VIAL IV PRN (01:08)
[2020-10-31] MEDS ORDERED: hydrALAZINE 20 MG/1 ML VIAL IV STA (01:23)
[2020-10-31] MEDS ORDERED: LABETALOL 20 MG/4 ML SYRINGE IV STA (02:30)
[2020-10-31] MEDS ORDERED: LABETALOL 20 MG/4 ML SYRINGE IV ONE (04:45)
[2020-10-31] MEDS: HYDROmorphone 2 MG/1 ML VIAL IV PRN ×4 (10:18→23:22)
[2020-10-31 10:19] LABS: INR 1.2; PT Patient Result 12.9 SECS (9.8-11.9)
[2020-10-31] MEDS: ONDANSETRON 4 MG/2 ML VIAL IV PRN (10:28)
[2020-10-31 13:12] LABS: Hepatitis B Core IgM Quant < 0.05 Index; Hepatitis B Surface Ag Quant < 0.10 Index; Hepatitis B Surface Ag Result Non-Reactive (NonReactive); Hepatitis C Virus Ab Quant 0.15 Index; Hepatitis C Virus Ab Result Non-Reactive (NonReactive)
[2020-10-31] MEDS: METOPROLOL SUCCINATE XL 50 MG TABLET PO SCH ×2 (15:46→20:52)
[2020-10-31 16:16] LABS: Alanine Aminotransferase < 9 U/L (16-61); Albumin 2.4 G/DL (3.4-5.0); Alkaline Phosphatase 208 U/L (45-117); Aspartate Amino Transferase 21 U/L (0-37); Blood Urea Nitrogen 30 MG/DL (7-18); Calcium 8.1 MG/DL (8.5-10.1); Carbon Dioxide 28 MMOL/L (21-32); Estimated Glom Filtration Rate 18 ML/MIN; Glucose 85 MG/DL (74-106); Osmolality,Calculated 268.5 MOS/KG (273-304); Potassium 3.7 MMOL/L (3.5-5.1); Sodium 132 MMOL/L (136-145); Total Protein 8.4 G/DL (6.4-8.2)
[2020-11-01] MEDS: HYDROmorphone 2 MG/1 ML VIAL IV PRN ×6 (03:22→21:31)
[2020-11-01] MEDS: ONDANSETRON 4 MG/2 ML VIAL IV PRN ×3 (03:52→16:13)
[2020-11-01 05:06] LABS: Basophils % 1.1 % (0.0-0.8); Eosinophils # 0.2 10*3/uL (0.0-0.87); Hemoglobin 8.2 GM/DL (14.0-18.0); Immature Granulocytes % 0.3 %; Immature Granulocytes Absolute 0.01 #; Lymphocytes # 1.5 10*3/uL (1.4-4.0); Lymphocytes % 39.8 % (21.2-54.2); Mean Corpuscular HGB Conc 30.4 GM/DL (32-36); Mean Corpuscular Volume 78.9 FL (87-102); Mean Platelet Volume 10.2 FL (9.6-12.0); Monocytes % 12.4 % (1.7-12.7); Neutrophils % 41.4 % (38.7-73.9); Platelet Count 227 T/CUMM (130-400); Red Blood Count 3.42 MC/CUMM (3.8-5.5); Red Cell Distribution Width 18.7 % (9.3-17.3); White Blood Count 3.8 T/CUMM (4-12)
[2020-11-01 05:39] LABS: Atypical Lymphocytes Few; Eosinophils 8 % (0-10); Lymphocytes 36 % (20-55); Segmented Neutrophils 46 % (50-85); Total Cells Counted 100
[2020-11-01 05:40] LABS: Osmolality,Calculated 277.2 MOS/KG (273-304); Potassium 4.2 MMOL/L (3.5-5.1)
[2020-11-01 05:40] LABS: Hypochromasia 2+; Microcytosis 1+; Ovalocytes Few; Target Cells Few; Tear Drop Cells Slight
[2020-11-01 05:41] LABS: Anisocytosis 1+; Platelet Estimate Normal
[2020-11-01] MEDS: PANTOPRAZOLE 40 MG TABLET PO SCH (06:30)
[2020-11-01] MEDS: METOPROLOL SUCCINATE XL 50 MG TABLET PO SCH ×2 (10:28→20:44)
[2020-11-01] MEDS ORDERED: PROMETHAZINE 25 MG TABLET PO PRN (15:31)
[2020-11-01] MEDS: FERROUS SULFATE 325 MG TABLET PO SCH (20:44)
[2020-11-01] MEDS: PROMETHAZINE 25 MG/1 ML VIAL IM PRN (20:45)
[2020-11-02] MEDS: HYDROmorphone 2 MG/1 ML VIAL IV PRN ×4 (01:45→16:15)
[2020-11-02] MEDS: PROMETHAZINE 25 MG/1 ML VIAL IM PRN ×3 (03:25→19:43)
[2020-11-02 06:18] LABS: Basophils % 0.8 % (0.0-0.8); Eosinophils # 0.3 10*3/uL (0.0-0.87); Eosinophils % 7.2 % (0.00-10.9); Hematocrit 29.6 VOL% (42.0-52.0); Hemoglobin 8.8 GM/DL (14.0-18.0); Immature Granulocytes % 0.3 %; Immature Granulocytes Absolute 0.01 #; Lymphocytes # 1.5 10*3/uL (1.4-4.0); Mean Corpuscular HGB Conc 29.7 GM/DL (32-36); Mean Corpuscular Volume 79.1 FL (87-102); Mean Platelet Volume 10.2 FL (9.6-12.0); Monocytes % 13.4 % (1.7-12.7); Neutrophils % 40.3 % (38.7-73.9); Platelet Count 267 T/CUMM (130-400); Red Blood Count 3.74 MC/CUMM (3.8-5.5); Red Cell Distribution Width 18.7 % (9.3-17.3); White Blood Count 3.9 T/CUMM (4-12)
[2020-11-02 06:42] LABS: Calcium 8.5 MG/DL (8.5-10.1); Osmolality,Calculated 275.7 MOS/KG (273-304); Potassium 4.7 MMOL/L (3.5-5.1)
[2020-11-02 06:48] LABS: Band Neutrophils 1 % (0-10); Eosinophils 5 % (0-10); Lymphocytes 40 % (20-55); Platelet Estimate Normal; Segmented Neutrophils 43 % (50-85); Total Cells Counted 100
[2020-11-02 06:49] LABS: Anisocytosis Slight; Atypical Lymphocytes Few; Hypochromasia 1+; Macrocytosis 1+; Target Cells Few
[2020-11-02] MEDS ORDERED: APIXABAN 5 MG TABLET PO SCH (09:00)
[2020-11-02] MEDS: PANTOPRAZOLE 40 MG TABLET PO SCH (14:52)
[2020-11-02] MEDS: METOPROLOL SUCCINATE XL 50 MG TABLET PO SCH ×2 (15:48→21:17)
[2020-11-02] MEDS: FERROUS SULFATE 325 MG TABLET PO SCH ×2 (15:48→21:17)
[2020-11-02] MEDS ORDERED: HYDROmorphone 2 MG/1 ML VIAL IV ONE (20:44)
[2020-11-02] MEDS ORDERED: SENNA 8.6 MG TABLET PO SCH (21:00)
[2020-11-02] MEDS: DOCUSATE SODIUM 100 MG CAPSULE PO SCH (21:22)
[2020-11-02] MEDS: POLYETHYLENE GLYCOL POWDER 17 GM PACK PO SCH (22:03)
[2020-11-03 04:56] LABS: Basophils % 0.6 % (0.0-0.8); Eosinophils # 0.3 10*3/uL (0.0-0.87); Eosinophils % 5.5 % (0.00-10.9); Hematocrit 29.6 VOL% (42.0-52.0); Hemoglobin 8.7 GM/DL (14.0-18.0); Immature Granulocytes % 0.4 %; Immature Granulocytes Absolute 0.02 #; Lymphocytes # 1.7 10*3/uL (1.4-4.0); Lymphocytes % 34.3 % (21.2-54.2); Mean Corpuscular HGB Conc 29.4 GM/DL (32-36); Mean Corpuscular Volume 79.4 FL (87-102); Monocytes % 13.2 % (1.7-12.7); Platelet Count 243 T/CUMM (130-400); Red Blood Count 3.73 MC/CUMM (3.8-5.5); Red Cell Distribution Width 18.7 % (9.3-17.3); White Blood Count 4.9 T/CUMM (4-12)
[2020-11-03 05:27] LABS: Calcium 8.2 MG/DL (8.5-10.1); Osmolality,Calculated 277.4 MOS/KG (273-304); Potassium 4.6 MMOL/L (3.5-5.1)
[2020-11-03 05:36] LABS: Hypochromasia 1+; Microcytosis 1+
[2020-11-03 05:39] LABS: Platelet Estimate Adequate
[2020-11-03] MEDS: PANTOPRAZOLE 40 MG TABLET PO SCH (06:46)
[2020-11-03] MEDS: PROMETHAZINE 25 MG/1 ML VIAL IM PRN (08:21)
[2020-11-03] MEDS: METOPROLOL SUCCINATE XL 50 MG TABLET PO SCH (08:22)
[2020-11-03] MEDS: FERROUS SULFATE 325 MG TABLET PO SCH (08:22)
[2020-11-03] MEDS: DOCUSATE SODIUM 100 MG CAPSULE PO SCH (08:22)
[2020-11-03] MEDS: POLYETHYLENE GLYCOL POWDER 17 GM PACK PO SCH (08:23)
[2020-11-03] MEDS ORDERED: LINACLOTIDE 145 MCG CAPSULE PO SCH (10:00)
[2020-11-03] MEDS ORDERED: MORPHINE 4 MG/1 ML VIAL IV ONE (10:41)
[2020-11-03] MEDS ORDERED: oxyCODONE IR 5 MG TABLET PO PRN (10:42)
[2020-11-03 11:31] VITALS: BP 143/90
== END 2020-11-03 12:42 | disposition home or self-care (01) | DRG 432 ==
LOC: EDUNIT# → EDBD → N.ED 21:10 → N.EDINP 10-31 01:09 → N.5E 10-31 09:05
PROVIDERS: ADMIT Hospitalist; ATTEND Hospitalist

== ENCOUNTER 2020-11-10 17:38 | Inpatient (IN) ==
[2020-11-10] MEDS ORDERED: HYDROmorphone 2 MG/1 ML VIAL IV STA (20:11)
[2020-11-10] MEDS ORDERED: ONDANSETRON 4 MG/2 ML VIAL IV STA (20:11)
[2020-11-10 20:14] LABS: Eosinophils # 0.3 10*3/uL (0.0-0.87); Hematocrit 28.4 VOL% (42.0-52.0); Hemoglobin 8.5 GM/DL (14.0-18.0); Immature Granulocytes % 0.2 %; Immature Granulocytes Absolute 0.01 #; Lymphocytes # 1.4 10*3/uL (1.4-4.0); Lymphocytes % 34.9 % (21.2-54.2); Mean Corpuscular HGB Conc 29.9 GM/DL (32-36); Mean Platelet Volume 9.9 FL (9.6-12.0); Monocytes % 11.5 % (1.7-12.7); Neutrophils % 44.4 % (38.7-73.9); Platelet Count 193 T/CUMM (130-400); Red Blood Count 3.64 MC/CUMM (3.8-5.5); Red Cell Distribution Width 18.4 % (9.3-17.3); White Blood Count 4.1 T/CUMM (4-12)
[2020-11-10 20:20] LABS: INR 1.2; Partial Thromboplastin Time 34.6 SECS (23.9-33.8)
[2020-11-10 20:28] LABS: Albumin 2.5 G/DL (3.4-5.0); Bilirubin,Total 0.4 MG/DL (0.2-1.0); Calcium 8.5 MG/DL (8.5-10.1); Potassium 4.4 MMOL/L (3.5-5.1); Total Protein 8.9 G/DL (6.4-8.2)
[2020-11-10 21:09] LABS: Band Neutrophils 2 % (0-10); Eosinophils 9 % (0-10); Lymphocytes 41 % (20-55); Segmented Neutrophils 45 % (50-85); Total Cells Counted 100
[2020-11-10 21:10] LABS: Microcytosis 1+; Platelet Estimate Normal; Polychromasia Slight
[2020-11-10 21:11] LABS: Ovalocytes Slight; Schistocytes Slight
[2020-11-10 21:12] LABS: Tear Drop Cells Slight
[2020-11-10] MEDS ORDERED: HYDROmorphone 2 MG TABLET PO PRN (23:35)
[2020-11-11] MEDS: HYDROmorphone 2 MG/1 ML VIAL IV PRN ×6 (00:40→20:48)
[2020-11-11] MEDS: ONDANSETRON 4 MG/2 ML VIAL IV PRN ×2 (00:40→20:45)
[2020-11-11 05:49] LABS: Basophils % 0.5 % (0.0-0.8); Eosinophils # 0.3 10*3/uL (0.0-0.87); Hematocrit 24.5 VOL% (42.0-52.0); Hemoglobin 7.1 GM/DL (14.0-18.0); Immature Granulocytes % 0.3 %; Immature Granulocytes Absolute 0.01 #; Lymphocytes # 1.4 10*3/uL (1.4-4.0); Lymphocytes % 36.9 % (21.2-54.2); Mean Platelet Volume 10.6 FL (9.6-12.0); Monocytes % 11.9 % (1.7-12.7); Neutrophils % 41.4 % (38.7-73.9); Platelet Count 213 T/CUMM (130-400); Red Blood Count 3.14 MC/CUMM (3.8-5.5); Red Cell Distribution Width 18.3 % (9.3-17.3); White Blood Count 3.8 T/CUMM (4-12)
[2020-11-11 06:06] LABS: Albumin 2.2 G/DL (3.4-5.0); Bilirubin,Total 0.5 MG/DL (0.2-1.0); Calcium 8.4 MG/DL (8.5-10.1); Osmolality,Calculated 283.2 MOS/KG (273-304); Potassium 4.6 MMOL/L (3.5-5.1); Total Protein 7.9 G/DL (6.4-8.2)
[2020-11-11 06:24] LABS: Band Neutrophils 2 % (0-10); Eosinophils 9 % (0-10); Lymphocytes 38 % (20-55); Metamyelocytes 1 %; Platelet Estimate Normal; Segmented Neutrophils 39 % (50-85); Total Cells Counted 100
[2020-11-11 06:25] LABS: Anisocytosis Slight; Hypochromasia 1+; Macrocytosis 1+; Poikilocytosis Slight; Target Cells Few; Tear Drop Cells Few
[2020-11-11] MEDS: PANTOPRAZOLE 40 MG TABLET PO SCH (08:45)
[2020-11-11] MEDS: METOPROLOL SUCCINATE XL 50 MG TABLET PO SCH ×2 (08:45→20:38)
[2020-11-11] MEDS: APIXABAN 5 MG TABLET PO SCH ×2 (08:45→20:39)
[2020-11-11] MEDS ORDERED: EPOETIN ALFA-EPBX 10,000 UNIT/ML VIAL IV PRN (10:47)
[2020-11-12] MEDS: HYDROmorphone 2 MG/1 ML VIAL IV PRN ×6 (00:27→22:14)
[2020-11-12 06:10] LABS: Basophils % 0.8 % (0.0-0.8); Eosinophils # 0.4 10*3/uL (0.0-0.87); Eosinophils % 7.9 % (0.00-10.9); Hematocrit 26.3 VOL% (42.0-52.0); Hemoglobin 7.7 GM/DL (14.0-18.0); Immature Granulocytes % 0.4 %; Immature Granulocytes Absolute 0.02 #; Lymphocytes # 1.6 10*3/uL (1.4-4.0); Lymphocytes % 32.1 % (21.2-54.2); Mean Corpuscular HGB Conc 29.3 GM/DL (32-36); Mean Corpuscular Volume 77.8 FL (87-102); Mean Platelet Volume 9.9 FL (9.6-12.0); Monocytes % 10.2 % (1.7-12.7); Neutrophils % 48.6 % (38.7-73.9); Platelet Count 262 T/CUMM (130-400); Red Blood Count 3.38 MC/CUMM (3.8-5.5); Red Cell Distribution Width 18.5 % (9.3-17.3); White Blood Count 4.9 T/CUMM (4-12)
[2020-11-12 06:36] LABS: Atypical Lymphocytes Few; Eosinophils 4 % (0-10); Hypochromasia 1+; Lymphocytes 33 % (20-55); Microcytosis 1+; Platelet Estimate Adequate; Segmented Neutrophils 55 % (50-85); Total Cells Counted 100
[2020-11-12 06:43] LABS: Albumin 2.4 G/DL (3.4-5.0); Bilirubin,Total 0.6 MG/DL (0.2-1.0); Calcium 8.3 MG/DL (8.5-10.1); Osmolality,Calculated 279.8 MOS/KG (273-304); Total Protein 8.4 G/DL (6.4-8.2)
[2020-11-12 06:59] LABS: Potassium 6.1 MMOL/L (3.5-5.1)
[2020-11-12] MEDS: ONDANSETRON 4 MG/2 ML VIAL IV PRN ×3 (08:03→22:14)
[2020-11-12] MEDS: METOPROLOL SUCCINATE XL 50 MG TABLET PO SCH ×2 (09:14→20:32)
[2020-11-12] MEDS: PANTOPRAZOLE 40 MG TABLET PO SCH (09:14)
[2020-11-12] MEDS: APIXABAN 5 MG TABLET PO SCH (09:15)
[2020-11-12] MEDS ORDERED: hydrALAZINE 20 MG/1 ML VIAL IV PRN (11:57)
[2020-11-12] MEDS ORDERED: traMADol 50 MG TABLET PO PRN (12:03)
[2020-11-13] MEDS: HYDROmorphone 2 MG/1 ML VIAL IV PRN ×6 (02:15→23:49)
[2020-11-13] MEDS: ONDANSETRON 4 MG/2 ML VIAL IV PRN ×5 (02:15→23:48)
[2020-11-13 07:40] LABS: Basophils % 0.9 % (0.0-0.8); Eosinophils # 0.4 10*3/uL (0.0-0.87); Hematocrit 27.2 VOL% (42.0-52.0); Hemoglobin 7.8 GM/DL (14.0-18.0); Immature Granulocytes % 0.4 %; Immature Granulocytes Absolute 0.02 #; Lymphocytes # 1.4 10*3/uL (1.4-4.0); Lymphocytes % 29.3 % (21.2-54.2); Mean Corpuscular HGB Conc 28.7 GM/DL (32-36); Mean Corpuscular Volume 79.1 FL (87-102); Neutrophils % 51.4 % (38.7-73.9); Platelet Count 250 T/CUMM (130-400); Red Blood Count 3.44 MC/CUMM (3.8-5.5); Red Cell Distribution Width 18.5 % (9.3-17.3); White Blood Count 4.6 T/CUMM (4-12)
[2020-11-13 07:45] LABS: Calcium 8.1 MG/DL (8.5-10.1); Osmolality,Calculated 272.8 MOS/KG (273-304); Potassium 5.1 MMOL/L (3.5-5.1)
[2020-11-13 07:57] LABS: Folate 8.7 NG/ML (5.38-24.0); Vitamin B12 433 PG/ML (211-911)
[2020-11-13 07:59] LABS: % Iron Saturation 14.5 % (18-50); Ferritin 677.1 ng/ml (26-388)
[2020-11-13] MEDS: PANTOPRAZOLE 40 MG TABLET PO SCH (07:59)
[2020-11-13] MEDS: METOPROLOL SUCCINATE XL 50 MG TABLET PO SCH ×2 (07:59→20:50)
[2020-11-13 08:15] LABS: Eosinophils 6 % (0-10); Lymphocytes 28 % (20-55); Segmented Neutrophils 61 % (50-85); Total Cells Counted 100
[2020-11-13 08:16] LABS: Hypochromasia 2+; Microcytosis Slight; Platelet Estimate Adequate
[2020-11-13 08:17] LABS: Atypical Lymphocytes Few
[2020-11-13] MEDS: FERROUS SULFATE 325 MG TABLET PO SCH ×2 (08:33→16:22)
[2020-11-13 09:03] LABS: Sedimentation Rate-Westergren 107 MM/HR (0-15)
[2020-11-13] MEDS ORDERED: PROMETHAZINE 25 MG TABLET PO ONE (13:26)
[2020-11-13 16:21] LABS: RBC,Peritoneal Fluid 12388 T/CUMM
[2020-11-13 17:57] LABS: Neutrophils,Peritoneal Fluid 12 %
[2020-11-14] MEDS: ONDANSETRON 4 MG/2 ML VIAL IV PRN ×2 (03:32→08:32)
[2020-11-14] MEDS: HYDROmorphone 2 MG/1 ML VIAL IV PRN ×3 (03:33→12:54)
[2020-11-14 05:33] LABS: Basophils % 0.9 % (0.0-0.8); Eosinophils # 0.4 10*3/uL (0.0-0.87); Eosinophils % 8.1 % (0.00-10.9); Hemoglobin 8.2 GM/DL (14.0-18.0); Immature Granulocytes % 0.4 %; Immature Granulocytes Absolute 0.02 #; Lymphocytes # 1.3 10*3/uL (1.4-4.0); Lymphocytes % 29.4 % (21.2-54.2); Mean Corpuscular HGB Conc 30.4 GM/DL (32-36); Mean Corpuscular Volume 76.1 FL (87-102); Mean Platelet Volume 10.5 FL (9.6-12.0); Monocytes % 10.5 % (1.7-12.7); Neutrophils % 50.7 % (38.7-73.9); Platelet Count 290 T/CUMM (130-400); Red Blood Count 3.55 MC/CUMM (3.8-5.5); Red Cell Distribution Width 18.1 % (9.3-17.3); White Blood Count 4.5 T/CUMM (4-12)
[2020-11-14 06:01] LABS: Eosinophils 12 % (0-10); Hypochromasia 2+; Lymphocytes 21 % (20-55); Microcytosis 1+; Ovalocytes Slight; Segmented Neutrophils 53 % (50-85); Target Cells Slight; Total Cells Counted 100
[2020-11-14 06:02] LABS: Platelet Estimate Normal
[2020-11-14 06:07] LABS: Calcium 8.4 MG/DL (8.5-10.1); Osmolality,Calculated 282.4 MOS/KG (273-304); Potassium 5.7 MMOL/L (3.5-5.1)
[2020-11-14] MEDS: FERROUS SULFATE 325 MG TABLET PO SCH (08:31)
[2020-11-14] MEDS: METOPROLOL SUCCINATE XL 50 MG TABLET PO SCH (08:32)
[2020-11-14] MEDS: PANTOPRAZOLE 40 MG TABLET PO SCH (08:32)
[2020-11-14 09:46] LABS: Hemoglobin A1 (Alkaline) 97.8 % (96.5-98.5); Hemoglobin A2 (Alkaline) 2.2 % (1.5-3.5)
[2020-11-14 15:55] VITALS: BP 120/86
== END 2020-11-14 16:50 | disposition home or self-care (01) | DRG 441 ==
LOC: N.ED 17:38 → N.EDINP 23:35 → SUATTDRO 23:35 → N.5E 11-11 00:51
PROVIDERS: ADMIT Family Medicine; ATTEND Internal Medicine

== ENCOUNTER 2020-11-30 07:46 | Observation (INO) ==
[2020-11-30] MEDS ORDERED: ONDANSETRON 4 MG/2 ML VIAL IV STA ×2 (08:20→12:05)
[2020-11-30] MEDS ORDERED: HYDROmorphone 2 MG/1 ML VIAL IV STA ×2 (08:20→12:05)
[2020-11-30 08:54] LABS: Basophils % 0.6 % (0.0-0.8); Eosinophils # 0.2 10*3/uL (0.0-0.87); Eosinophils % 3.6 % (0.00-10.9); Hematocrit 30.2 VOL% (42.0-52.0); Hemoglobin 9.3 GM/DL (14.0-18.0); Immature Granulocytes % 0.4 %; Immature Granulocytes Absolute 0.02 #; Lymphocytes % 39.9 % (21.2-54.2); Mean Corpuscular HGB Conc 30.8 GM/DL (32-36); Mean Corpuscular Volume 74.6 FL (87-102); Mean Platelet Volume 10.6 FL (9.6-12.0); Monocytes % 9.8 % (1.7-12.7); Neutrophils % 45.7 % (38.7-73.9); Platelet Count 212 T/CUMM (130-400); Red Blood Count 4.05 MC/CUMM (3.8-5.5); Red Cell Distribution Width 19.1 % (9.3-17.3)
[2020-11-30 09:13] LABS: Alanine Aminotransferase < 6 U/L (16-61); Albumin 2.1 G/DL (3.4-5.0); Alkaline Phosphatase 244 U/L (45-117); Aspartate Amino Transferase 18 U/L (0-37); Blood Urea Nitrogen 31 MG/DL (7-18); Calcium 7.9 MG/DL (8.5-10.1); Carbon Dioxide 26 MMOL/L (21-32); Estimated Glom Filtration Rate 10 ML/MIN; Osmolality,Calculated 261.9 MOS/KG (273-304); Potassium 4.2 MMOL/L (3.5-5.1); Sodium 129 MMOL/L (136-145); Total Protein 8.2 G/DL (6.4-8.2)
[2020-11-30 09:14] LABS: Glucose 50 MG/DL (74-106)
[2020-11-30] MEDS ORDERED: DEXTROSE 50% 25 GM/50 ML SYRINGE IV ONE (09:15)
[2020-11-30 09:17] LABS: Anisocytosis 1+; Eosinophils 4 % (0-10); Hypochromasia 2+; Lymphocytes 45 % (20-55); Microcytosis 1+; Segmented Neutrophils 45 % (50-85); Total Cells Counted 100
[2020-11-30 09:18] LABS: Platelet Estimate Normal; Target Cells Slight
[2020-11-30] MEDS ORDERED: DEXTROSE 50% 25 GM/50 ML VIAL IV STA (09:18)
[2020-11-30 09:19] LABS: Atypical Lymphocytes Few
[2020-11-30] MEDS ORDERED: hydrALAZINE 20 MG/1 ML VIAL ONE (09:48)
[2020-11-30] MEDS ORDERED: DEXTROSE 50% 25 GM/50 ML VIAL IV PRN (10:13)
[2020-11-30] MEDS ORDERED: GLUCAGON 1 MG VIAL IM PRN (10:13)
[2020-11-30] MEDS: ONDANSETRON 4 MG/2 ML VIAL IV PRN (15:24)
[2020-11-30] MEDS: DEXTROSE 5% NACL 0.45% 1,000 ML IV SCH (15:28)
[2020-11-30] MEDS: MORPHINE 4 MG/1 ML VIAL IV PRN (22:54)
[2020-12-01] MEDS: hydrALAZINE 20 MG/1 ML VIAL IV PRN ×2 (03:44→12:28)
[2020-12-01 05:16] LABS: Basophils % 0.8 % (0.0-0.8); Eosinophils # 0.2 10*3/uL (0.0-0.87); Eosinophils % 4.6 % (0.00-10.9); Hematocrit 29.7 VOL% (42.0-52.0); Hemoglobin 8.9 GM/DL (14.0-18.0); Immature Granulocytes % 0.4 %; Immature Granulocytes Absolute 0.02 #; Lymphocytes # 1.7 10*3/uL (1.4-4.0); Lymphocytes % 33.2 % (21.2-54.2); Mean Corpuscular Volume 74.3 FL (87-102); Mean Platelet Volume 10.5 FL (9.6-12.0); Monocytes % 12.5 % (1.7-12.7); Neutrophils % 48.5 % (38.7-73.9); Platelet Count 229 T/CUMM (130-400); Red Cell Distribution Width 19.1 % (9.3-17.3)
[2020-12-01 05:37] LABS: Atypical Lymphocytes Few; Eosinophils 4 % (0-10); Hypochromasia Slight; Lymphocytes 35 % (20-55); Microcytosis 1+; Platelet Estimate Normal; Segmented Neutrophils 56 % (50-85); Total Cells Counted 100
[2020-12-01 05:39] LABS: Calcium 8.2 MG/DL (8.5-10.1); Osmolality,Calculated 267.5 MOS/KG (273-304); Potassium 3.9 MMOL/L (3.5-5.1)
[2020-12-01] MEDS: ONDANSETRON 4 MG/2 ML VIAL IV PRN (08:39)
[2020-12-01] MEDS: MORPHINE 4 MG/1 ML VIAL IV PRN ×3 (10:13→21:24)
[2020-12-01] MEDS: DEXTROSE 5% NACL 0.45% 1,000 ML IV SCH (10:14)
[2020-12-01 17:19] LABS: Neutrophils,Peritoneal Fluid 8 %
[2020-12-01 17:20] LABS: RBC,Peritoneal Fluid 27986 T/CUMM
[2020-12-01] MEDS: METOPROLOL TARTRATE 50 MG TABLET PO SCH (20:13)
[2020-12-02] MEDS: MORPHINE 4 MG/1 ML VIAL IV PRN ×2 (03:31→09:21)
[2020-12-02] MEDS ORDERED: PANTOPRAZOLE 40 MG TABLET PO SCH (09:00)
[2020-12-02] MEDS: METOPROLOL TARTRATE 50 MG TABLET PO SCH (09:07)
[2020-12-02] MEDS: hydrALAZINE 20 MG/1 ML VIAL IV PRN (10:54)
[2020-12-02 13:39] VITALS: BP 145/100
== END 2020-12-02 15:05 | disposition home or self-care (01) ==
LOC: N.EDINP 07:46 → N.ED 07:46 → N.5E 12:48
PROVIDERS: ADMIT Hospitalist; ATTEND Hospitalist

== ENCOUNTER 2020-12-20 03:16 | Inpatient (IN) ==
[2020-12-20] MEDS ORDERED: MORPHINE 4 MG/1 ML VIAL IV STA (03:39)
[2020-12-20] MEDS ORDERED: ONDANSETRON 4 MG/2 ML VIAL IV STA (03:39)
[2020-12-20] MEDS ORDERED: PANTOPRAZOLE 40 MG VIAL IV STA (03:39)
[2020-12-20 03:52] LABS: Basophils % 0.4 % (0.0-0.8); Eosinophils # 0.1 10*3/uL (0.0-0.87); Eosinophils % 1.4 % (0.00-10.9); Hematocrit 32.3 VOL% (42.0-52.0); Hemoglobin 9.5 GM/DL (14.0-18.0); Immature Granulocytes % 0.6 %; Immature Granulocytes Absolute 0.03 #; Lymphocytes # 2.4 10*3/uL (1.4-4.0); Lymphocytes % 47.7 % (21.2-54.2); Mean Corpuscular HGB Conc 29.4 GM/DL (32-36); Mean Corpuscular Volume 73.2 FL (87-102); Monocytes % 10.8 % (1.7-12.7); NRBC # 0.02 10*3/uL; Neutrophils % 39.1 % (38.7-73.9); Platelet Count 110 T/CUMM (130-400); Red Blood Count 4.41 MC/CUMM (3.8-5.5); Red Cell Distribution Width 20.3 % (9.3-17.3); White Blood Count 5.1 T/CUMM (4-12)
[2020-12-20 04:10] LABS: Alanine Aminotransferase 12 U/L (16-61); Albumin 2.5 G/DL (3.4-5.0); Alkaline Phosphatase 304 U/L (45-117); Amylase 104 U/L (25-115); Aspartate Amino Transferase 47 U/L (0-37); Blood Urea Nitrogen 23 MG/DL (7-18); Calcium 6.8 MG/DL (8.5-10.1); Carbon Dioxide 27 MMOL/L (21-32); Estimated Glom Filtration Rate 16 ML/MIN; Osmolality,Calculated 259.8 MOS/KG (273-304); Potassium 3.3 MMOL/L (3.5-5.1); Sodium 130 MMOL/L (136-145); Total Protein 9.5 G/DL (6.4-8.2)
[2020-12-20 04:13] LABS: Glucose 28 MG/DL (74-106)
[2020-12-20] MEDS ORDERED: DEXTROSE 50% 25 GM/50 ML VIAL IV STA (04:13)
[2020-12-20] MEDS ORDERED: DEXTROSE 50% 25 GM/50 ML SYRINGE IV ONE ×2 (04:14→05:37)
[2020-12-20 04:20] LABS: Eosinophils 1 % (0-10); Hypochromasia Slight; Lymphocytes 47 % (20-55); Nucleated Red Blood Cells 1 (0-5); Platelet Estimate Decreased; Segmented Neutrophils 42 % (50-85); Total Cells Counted 100
[2020-12-20 04:21] LABS: Atypical Lymphocytes Few
[2020-12-20 04:22] LABS: Microcytosis Slight
[2020-12-20] MEDS ORDERED: GLUCAGON 1 MG VIAL IM PRN (04:35)
[2020-12-20] MEDS ORDERED: MORPHINE 4 MG/1 ML VIAL IV PRN (04:35)
[2020-12-20] MEDS ORDERED: PROMETHAZINE 25 MG/1 ML VIAL IM STA (05:17)
[2020-12-20] MEDS: DEXTROSE 50% 25 GM/50 ML VIAL IV PRN ×5 (05:41→21:21)
[2020-12-20] MEDS ORDERED: hydrALAZINE 20 MG/1 ML VIAL IV PRN (05:46)
[2020-12-20] MEDS ORDERED: POTASSIUM CHLORIDE 20 MEQ TABLET PO ONE (07:39)
[2020-12-20] MEDS: ONDANSETRON 4 MG/2 ML VIAL IV PRN (09:35)
[2020-12-20] MEDS: PANTOPRAZOLE 40 MG TABLET PO SCH (09:35)
[2020-12-20] MEDS: HYDROmorphone 2 MG/1 ML VIAL IV PRN ×3 (11:40→21:25)
[2020-12-20] MEDS: PROMETHAZINE 25 MG/1 ML VIAL IM PRN (11:41)
[2020-12-20] MEDS: CIPROFLOXACIN 500 MG TABLET PO SCH (16:26)
[2020-12-20] MEDS ORDERED: SULFAMETHOX/TRIMETHOPRIM 800-160 MG TABLET PO SCH (21:00)
[2020-12-21] MEDS: HYDROmorphone 2 MG/1 ML VIAL IV PRN ×5 (01:11→21:24)
[2020-12-21] MEDS: DEXTROSE 50% 25 GM/50 ML VIAL IV PRN ×7 (01:13→23:21)
[2020-12-21 01:34] LABS: Albumin 2.3 G/DL (3.4-5.0); Calcium 6.6 MG/DL (8.5-10.1); Osmolality,Calculated 260.1 MOS/KG (273-304); Potassium 4.2 MMOL/L (3.5-5.1); Total Protein 9.4 G/DL (6.4-8.2)
[2020-12-21 01:43] LABS: Basophils % 0.6 % (0.0-0.8); Eosinophils # 0.1 10*3/uL (0.0-0.87); Eosinophils % 2.3 % (0.00-10.9); Hematocrit 34.2 VOL% (42.0-52.0); Immature Granulocytes % 0.3 %; Immature Granulocytes Absolute 0.01 #; Lymphocytes # 1.8 10*3/uL (1.4-4.0); Mean Corpuscular HGB Conc 29.2 GM/DL (32-36); Mean Corpuscular Volume 73.4 FL (87-102); Monocytes % 11.9 % (1.7-12.7); NRBC # 0.03 10*3/uL; Neutrophils % 34.9 % (38.7-73.9); Platelet Count 91 T/CUMM (130-400); Red Blood Count 4.66 MC/CUMM (3.8-5.5); Red Cell Distribution Width 20.6 % (9.3-17.3); White Blood Count 3.5 T/CUMM (4-12)
[2020-12-21 02:57] LABS: Eosinophils 4 % (0-10); Lymphocytes 53 % (20-55); Nucleated Red Blood Cells 2 (0-5); Platelet Estimate Decreased; Polychromasia Few; Segmented Neutrophils 36 % (50-85); Total Cells Counted 100
[2020-12-21 02:58] LABS: Hypochromasia 1+; Microcytosis 2+
[2020-12-21] MEDS: PANTOPRAZOLE 40 MG TABLET PO SCH (08:50)
[2020-12-21] MEDS: ONDANSETRON 4 MG/2 ML VIAL IV PRN (08:50)
[2020-12-21] MEDS: CIPROFLOXACIN 500 MG TABLET PO SCH (08:50)
[2020-12-21] MEDS: PROMETHAZINE 25 MG/1 ML VIAL IM PRN (10:18)
[2020-12-21 17:46] LABS: Hepatitis B Core IgM Quant 0.08 Index; Hepatitis B Surface Ag Quant < 0.10 Index; Hepatitis B Surface Ag Result Non-Reactive (NonReactive); Hepatitis C Virus Ab Quant 0.22 Index; Hepatitis C Virus Ab Result Non-Reactive (NonReactive)
[2020-12-21] MEDS: DICYCLOMINE 20 MG TABLET PO SCH (21:11)
[2020-12-21] MEDS: METOPROLOL TARTRATE 50 MG TABLET PO SCH (21:11)
[2020-12-22] MEDS: DEXTROSE 50% 25 GM/50 ML VIAL IV PRN ×5 (01:05→18:38)
[2020-12-22] MEDS: HYDROmorphone 2 MG/1 ML VIAL IV PRN ×5 (01:07→18:38)
[2020-12-22] MEDS: ONDANSETRON 4 MG/2 ML VIAL IV PRN ×3 (01:08→15:26)
[2020-12-22] MEDS: CIPROFLOXACIN 500 MG TABLET PO SCH (09:59)
[2020-12-22] MEDS: DICYCLOMINE 20 MG TABLET PO SCH ×3 (09:59→21:02)
[2020-12-22] MEDS: PANTOPRAZOLE 40 MG TABLET PO SCH (09:59)
[2020-12-22] MEDS: METOPROLOL TARTRATE 50 MG TABLET PO SCH ×2 (10:00→23:01)
[2020-12-22] MEDS: METOCLOPRAMIDE 10 MG/2 ML VIAL IV SCH ×2 (12:10→18:32)
[2020-12-22] MEDS: DEXTROSE 10% 1,000 ML IV SCH (18:35)
[2020-12-23] MEDS: METOCLOPRAMIDE 10 MG/2 ML VIAL IV SCH ×4 (00:04→18:36)
[2020-12-23 06:26] LABS: Basophils % 0.3 % (0.0-0.8); Eosinophils # 0.1 10*3/uL (0.0-0.87); Hematocrit 28.6 VOL% (42.0-52.0); Hemoglobin 8.5 GM/DL (14.0-18.0); Immature Granulocytes % 0.4 %; Immature Granulocytes Absolute 0.03 #; Lymphocytes # 2.6 10*3/uL (1.4-4.0); Lymphocytes % 35.8 % (21.2-54.2); Mean Corpuscular HGB Conc 29.7 GM/DL (32-36); Mean Corpuscular Volume 72.8 FL (87-102); Monocytes % 12.6 % (1.7-12.7); NRBC # 0.16 10*3/uL; Neutrophils % 49.9 % (38.7-73.9); Platelet Count 68 T/CUMM (130-400); Red Blood Count 3.93 MC/CUMM (3.8-5.5); Red Cell Distribution Width 20.9 % (9.3-17.3); White Blood Count 7.2 T/CUMM (4-12)
[2020-12-23 06:54] LABS: Albumin 2.1 G/DL (3.4-5.0); Bilirubin,Total 1.2 MG/DL (0.2-1.0); Calcium 6.4 MG/DL (8.5-10.1); Osmolality,Calculated 261.1 MOS/KG (273-304); Potassium 4.1 MMOL/L (3.5-5.1)
[2020-12-23 07:42] LABS: Hypochromasia 2+; Lymphocytes 37 % (20-55); Microcytosis 1+; Nucleated Red Blood Cells 3 (0-5); Segmented Neutrophils 56 % (50-85); Total Cells Counted 100
[2020-12-23 07:43] LABS: Platelet Estimate Decreased; Polychromasia Slight; Target Cells Few
[2020-12-23] MEDS: HYDROmorphone 2 MG/1 ML VIAL IV PRN ×5 (08:54→23:37)
[2020-12-23] MEDS: PANTOPRAZOLE 40 MG TABLET PO SCH (08:55)
[2020-12-23] MEDS: CIPROFLOXACIN 500 MG TABLET PO SCH (08:55)
[2020-12-23] MEDS: METOPROLOL TARTRATE 50 MG TABLET PO SCH ×2 (08:56→21:17)
[2020-12-23] MEDS: DICYCLOMINE 20 MG TABLET PO SCH ×3 (08:56→21:17)
[2020-12-23] MEDS: ONDANSETRON 4 MG/2 ML VIAL IV PRN ×3 (11:45→21:17)
[2020-12-23] MEDS: cefTRIAXone 2,000 MG in SODIUM CHLORIDE 0.9% 100 ML IV SCH (12:49)
[2020-12-23] MEDS: DEXTROSE 10% 1,000 ML IV SCH ×2 (23:52)
[2020-12-24] MEDS: METOCLOPRAMIDE 10 MG/2 ML VIAL IV SCH ×4 (00:17→17:39)
[2020-12-24] MEDS: ONDANSETRON 4 MG/2 ML VIAL IV PRN ×4 (03:00→20:58)
[2020-12-24] MEDS: HYDROmorphone 2 MG/1 ML VIAL IV PRN ×6 (03:01→20:59)
[2020-12-24 05:54] LABS: Basophils % 0.3 % (0.0-0.8); Eosinophils # 0.1 10*3/uL (0.0-0.87); Eosinophils % 1.4 % (0.00-10.9); Hematocrit 27.8 VOL% (42.0-52.0); Hemoglobin 8.6 GM/DL (14.0-18.0); Immature Granulocytes % 0.4 %; Immature Granulocytes Absolute 0.03 #; Lymphocytes # 2.3 10*3/uL (1.4-4.0); Lymphocytes % 31.5 % (21.2-54.2); Mean Corpuscular HGB Conc 30.9 GM/DL (32-36); Mean Corpuscular Volume 71.3 FL (87-102); Monocytes % 12.6 % (1.7-12.7); NRBC # 0.13 10*3/uL; Neutrophils % 53.8 % (38.7-73.9); Platelet Count 64 T/CUMM (130-400); Red Cell Distribution Width 21.2 % (9.3-17.3); White Blood Count 7.2 T/CUMM (4-12)
[2020-12-24 06:03] LABS: INR 2.2
[2020-12-24 06:05] LABS: PT Patient Result 23.2 SECS (10.5-12.0)
[2020-12-24 06:18] LABS: Albumin 2.2 G/DL (3.4-5.0); Bilirubin,Total 1.3 MG/DL (0.2-1.0); Calcium 6.5 MG/DL (8.5-10.1); Osmolality,Calculated 257.4 MOS/KG (273-304); Potassium 4.6 MMOL/L (3.5-5.1); Total Protein 8.4 G/DL (6.4-8.2)
[2020-12-24 06:21] LABS: Lymphocytes 36 % (20-55); Platelet Estimate Decreased; Segmented Neutrophils 52 % (50-85); Total Cells Counted 100
[2020-12-24 06:40] LABS: % Iron Saturation 38.1 % (18-50); Total Protein 8.3 G/DL (6.4-8.2)
[2020-12-24 09:13] LABS: Immunoglobulin A (Chem) 375 MG/DL (70-400); Immunoglobulin G (Chem) 3390 MG/DL (700-1600); Immunoglobulin M (Chem) 73 MG/DL (40-230); Total Protein (Chem) 8.3 G/DL (6.4-8.3)
[2020-12-24] MEDS: PANTOPRAZOLE 40 MG TABLET PO SCH (09:15)
[2020-12-24] MEDS: DICYCLOMINE 20 MG TABLET PO SCH ×3 (09:15→20:59)
[2020-12-24 10:53] LABS: Hemoglobin A1 (Alkaline) 97.2 % (96.5-98.5); Hemoglobin A2 (Alkaline) 2.8 % (1.5-3.5)
[2020-12-24 11:23] LABS: Albumin (SPE) 3.3 G/DL (3.2-5.3); Albumin (SPE) Rel % 39.4 %; Alpha 1 (SPE) 0.4 G/DL (0.1-0.4); Alpha 1 (SPE) Rel % 4.8 %; Alpha 2 (SPE) 0.6 G/DL (0.4-1.0); Alpha 2 (SPE) Rel % 7.5 %; Beta (SPE) 0.5 G/DL (0.5-1.1); Beta (SPE) Rel % 6.4 %; Gamma (SPE) 3.5 G/DL (0.7-1.7); Gamma (SPE) Rel % 41.9 %
[2020-12-24] MEDS: cefTRIAXone 2,000 MG in SODIUM CHLORIDE 0.9% 100 ML IV SCH (14:00)
[2020-12-24] MEDS: METOPROLOL TARTRATE 50 MG TABLET PO SCH ×2 (14:00→22:39)
[2020-12-25] MEDS: HYDROmorphone 2 MG/1 ML VIAL IV PRN ×5 (00:13→21:35)
[2020-12-25] MEDS: METOCLOPRAMIDE 10 MG/2 ML VIAL IV SCH ×4 (00:14→19:39)
[2020-12-25] MEDS: DEXTROSE 50% 25 GM/50 ML VIAL IV PRN ×4 (00:59→20:27)
[2020-12-25 05:50] LABS: Basophils % 0.4 % (0.0-0.8); Eosinophils # 0.2 10*3/uL (0.0-0.87); Eosinophils % 2.1 % (0.00-10.9); Hematocrit 27.8 VOL% (42.0-52.0); Hemoglobin 8.6 GM/DL (14.0-18.0); Immature Granulocytes % 0.4 %; Immature Granulocytes Absolute 0.03 #; Lymphocytes # 2.3 10*3/uL (1.4-4.0); Lymphocytes % 33.2 % (21.2-54.2); Mean Corpuscular HGB Conc 30.9 GM/DL (32-36); Mean Corpuscular Volume 71.5 FL (87-102); Monocytes % 12.4 % (1.7-12.7); NRBC # 0.14 10*3/uL; Neutrophils % 51.5 % (38.7-73.9); Platelet Count 67 T/CUMM (130-400); Red Blood Count 3.89 MC/CUMM (3.8-5.5); Red Cell Distribution Width 21.6 % (9.3-17.3)
[2020-12-25 05:51] LABS: INR 2.3
[2020-12-25 06:13] LABS: Eosinophils 1 % (0-10); Lymphocytes 33 % (20-55); Nucleated Red Blood Cells 2 (0-5); Segmented Neutrophils 55 % (50-85); Total Cells Counted 100
[2020-12-25 06:14] LABS: Hypochromasia 2+; Polychromasia Few; Target Cells Few
[2020-12-25 06:15] LABS: Acanthocytes Few; Anisocytosis 1+; Macrocytosis 1+; Poikilocytosis 1+
[2020-12-25 06:16] LABS: Bilirubin,Total 1.8 MG/DL (0.2-1.0); Burr Cells Few; Osmolality,Calculated 263.7 MOS/KG (273-304); Platelet Estimate Decreased; Potassium 4.3 MMOL/L (3.5-5.1); Total Protein 8.2 G/DL (6.4-8.2)
[2020-12-25] MEDS: METOPROLOL TARTRATE 50 MG TABLET PO SCH ×2 (10:23→21:04)
[2020-12-25] MEDS: DICYCLOMINE 20 MG TABLET PO SCH ×3 (10:23→21:05)
[2020-12-25] MEDS: ONDANSETRON 4 MG/2 ML VIAL IV PRN ×3 (10:23→21:34)
[2020-12-25] MEDS: PANTOPRAZOLE 40 MG TABLET PO SCH (10:23)
[2020-12-25] MEDS ORDERED: PHYTONADIONE 10 MG/1 ML AMP SUBCUT ONE (13:30)
[2020-12-25] MEDS: cefTRIAXone 2,000 MG in SODIUM CHLORIDE 0.9% 100 ML IV SCH (16:58)
[2020-12-25] MEDS ORDERED: DEXTROSE 5% 1,000 ML IV SCH (19:00)
[2020-12-26] MEDS: METOCLOPRAMIDE 10 MG/2 ML VIAL IV SCH ×5 (00:15→23:39)
[2020-12-26] MEDS: DEXTROSE 50% 25 GM/50 ML VIAL IV PRN ×2 (00:53→08:02)
[2020-12-26] MEDS: HYDROmorphone 2 MG/1 ML VIAL IV PRN ×6 (03:41→23:39)
[2020-12-26] MEDS: ONDANSETRON 4 MG/2 ML VIAL IV PRN ×5 (03:41→23:35)
[2020-12-26 07:54] LABS: Basophils % 0.6 % (0.0-0.8); Eosinophils # 0.1 10*3/uL (0.0-0.87); Eosinophils % 2.1 % (0.00-10.9); Hematocrit 28.7 VOL% (42.0-52.0); Immature Granulocytes % 0.2 %; Immature Granulocytes Absolute 0.01 #; Lymphocytes # 2.2 10*3/uL (1.4-4.0); Lymphocytes % 36.3 % (21.2-54.2); Mean Corpuscular HGB Conc 31.4 GM/DL (32-36); Mean Corpuscular Volume 70.3 FL (87-102); Monocytes % 15.4 % (1.7-12.7); NRBC # 0.13 10*3/uL; Neutrophils % 45.4 % (38.7-73.9); Platelet Count 68 T/CUMM (130-400); Red Blood Count 4.08 MC/CUMM (3.8-5.5); Red Cell Distribution Width 21.9 % (9.3-17.3); White Blood Count 6.2 T/CUMM (4-12)
[2020-12-26 08:01] LABS: PT Patient Result 20.8 SECS (10.5-12.0)
[2020-12-26 08:08] LABS: Albumin 2.1 G/DL (3.4-5.0); Osmolality,Calculated 252.6 MOS/KG (273-304); Potassium 4.9 MMOL/L (3.5-5.1); Total Protein 8.4 G/DL (6.4-8.2)
[2020-12-26 08:11] LABS: Atypical Lymphocytes Few; Eosinophils 1 % (0-10); Lymphocytes 36 % (20-55); Nucleated Red Blood Cells 2 (0-5); Platelet Estimate Decreased; Segmented Neutrophils 54 % (50-85); Total Cells Counted 100
[2020-12-26 08:12] LABS: Hypochromasia 1+; Macrocytosis Slight; Polychromasia Slight
[2020-12-26] MEDS: DICYCLOMINE 20 MG TABLET PO SCH ×3 (11:49→21:10)
[2020-12-26] MEDS: METOPROLOL TARTRATE 50 MG TABLET PO SCH ×2 (11:49→21:10)
[2020-12-26] MEDS: PANTOPRAZOLE 40 MG TABLET PO SCH (11:49)
[2020-12-26] MEDS ORDERED: SODIUM CHLORIDE 0.9% 1,000 ML IV PRN (12:30)
[2020-12-26] MEDS: cefTRIAXone 2,000 MG in SODIUM CHLORIDE 0.9% 100 ML IV SCH (15:29)
[2020-12-26] MEDS ORDERED: PHYTONADIONE 10 MG/1 ML AMP SUBCUT ONE (18:22)
[2020-12-27] MEDS: HYDROmorphone 2 MG/1 ML VIAL IV PRN ×6 (03:07→20:45)
[2020-12-27] MEDS: ONDANSETRON 4 MG/2 ML VIAL IV PRN ×4 (03:07→18:32)
[2020-12-27] MEDS: DEXTROSE 50% 25 GM/50 ML VIAL IV PRN ×3 (03:15→20:41)
[2020-12-27] MEDS: METOCLOPRAMIDE 10 MG/2 ML VIAL IV SCH ×3 (05:29→18:32)
[2020-12-27 06:48] LABS: Basophils % 0.3 % (0.0-0.8); Eosinophils # 0.1 10*3/uL (0.0-0.87); Eosinophils % 0.9 % (0.00-10.9); Hematocrit 28.8 VOL% (42.0-52.0); Immature Granulocytes % 0.6 %; Immature Granulocytes Absolute 0.04 #; Lymphocytes # 2.5 10*3/uL (1.4-4.0); Lymphocytes % 38.3 % (21.2-54.2); Mean Corpuscular HGB Conc 31.3 GM/DL (32-36); Mean Corpuscular Volume 71.5 FL (87-102); Monocytes % 13.2 % (1.7-12.7); NRBC # 0.09 10*3/uL; Neutrophils % 46.7 % (38.7-73.9); Platelet Count 65 T/CUMM (130-400); Red Blood Count 4.03 MC/CUMM (3.8-5.5); Red Cell Distribution Width 22.5 % (9.3-17.3); White Blood Count 6.5 T/CUMM (4-12)
[2020-12-27 06:53] LABS: INR 1.7; PT Patient Result 17.9 SECS (10.5-12.0)
[2020-12-27 07:09] LABS: Hypochromasia 2+; Lymphocytes 46 % (20-55); Nucleated Red Blood Cells 4 (0-5); Segmented Neutrophils 43 % (50-85); Total Cells Counted 100
[2020-12-27 07:10] LABS: Acanthocytes Few; Anisocytosis 1+; Macrocytosis 1+; Polychromasia Slight; Target Cells Few
[2020-12-27 07:11] LABS: Burr Cells Few; Platelet Estimate Decreased
[2020-12-27 07:37] LABS: Albumin 2.1 G/DL (3.4-5.0); Bilirubin,Total 0.5 MG/DL (0.2-1.0); Calcium 7.4 MG/DL (8.5-10.1); Osmolality,Calculated 252.4 MOS/KG (273-304); Potassium 4.6 MMOL/L (3.5-5.1); Total Protein 8.4 G/DL (6.4-8.2)
[2020-12-27] MEDS: PANTOPRAZOLE 40 MG TABLET PO SCH (09:48)
[2020-12-27] MEDS: DEXTROSE 10% 1,000 ML IV SCH ×2 (09:48→21:06)
[2020-12-27] MEDS: METOPROLOL TARTRATE 50 MG TABLET PO SCH ×2 (09:48→21:36)
[2020-12-27] MEDS: DICYCLOMINE 20 MG TABLET PO SCH ×3 (09:48→20:38)
[2020-12-27] MEDS ORDERED: TISSUE ADHESIVE 1 EACH APPLICATOR TOP ONE (14:24)
[2020-12-27 14:32] LABS: Total Protein,Peritoneal Fluid 4.2 G/DL
[2020-12-27 14:54] LABS: Neutrophils,Peritoneal Fluid 8 %
[2020-12-27 14:55] LABS: RBC,Peritoneal Fluid 8535 T/CUMM
[2020-12-27] MEDS: cefTRIAXone 2,000 MG in SODIUM CHLORIDE 0.9% 100 ML IV SCH (15:29)
[2020-12-28] MEDS: DEXTROSE 50% 25 GM/50 ML VIAL IV PRN ×3 (00:31→09:38)
[2020-12-28] MEDS: ONDANSETRON 4 MG/2 ML VIAL IV PRN ×3 (00:31→20:42)
[2020-12-28] MEDS: METOCLOPRAMIDE 10 MG/2 ML VIAL IV SCH ×3 (00:39→11:04)
[2020-12-28] MEDS: HYDROmorphone 2 MG/1 ML VIAL IV PRN ×3 (03:30→15:29)
[2020-12-28 05:22] LABS: INR 3.6
[2020-12-28 05:34] LABS: Albumin 2.1 G/DL (3.4-5.0); Basophils % 0.5 % (0.0-0.8); Bilirubin,Total 1.6 MG/DL (0.2-1.0); Calcium 7.3 MG/DL (8.5-10.1); Eosinophils % 0.5 % (0.00-10.9); Hematocrit 32.8 VOL% (42.0-52.0); Hemoglobin 9.9 GM/DL (14.0-18.0); Immature Granulocytes % 0.2 %; Immature Granulocytes Absolute 0.01 #; Lymphocytes # 2.1 10*3/uL (1.4-4.0); Lymphocytes % 37.1 % (21.2-54.2); Mean Corpuscular HGB Conc 30.2 GM/DL (32-36); Mean Corpuscular Volume 74.5 FL (87-102); Monocytes % 16.4 % (1.7-12.7); NRBC # 0.16 10*3/uL; Neutrophils % 45.3 % (38.7-73.9); Osmolality,Calculated 249.8 MOS/KG (273-304); Platelet Count 67 T/CUMM (130-400); Potassium 4.8 MMOL/L (3.5-5.1); Red Cell Distribution Width 23.5 % (9.3-17.3); Total Protein 8.1 G/DL (6.4-8.2); White Blood Count 5.6 T/CUMM (4-12)
[2020-12-28] MEDS: DEXTROSE 10% 1,000 ML IV SCH (07:33)
[2020-12-28 08:23] LABS: Atypical Lymphocytes Few; Band Neutrophils 1 % (0-10); Burr Cells 1+; Lymphocytes 40 % (20-55); Macrocytosis 1+; Nucleated Red Blood Cells 3 (0-5); Ovalocytes Few; Platelet Estimate Decreased; Segmented Neutrophils 50 % (50-85); Total Cells Counted 100
[2020-12-28 08:24] LABS: Anisocytosis 3+; Hypochromasia Slight; Poikilocytosis 1+; Target Cells Few; Tear Drop Cells Few
[2020-12-28] MEDS: PANTOPRAZOLE 40 MG TABLET PO SCH (08:42)
[2020-12-28] MEDS: DICYCLOMINE 20 MG TABLET PO SCH ×3 (08:42→20:42)
[2020-12-28] MEDS: METOPROLOL TARTRATE 50 MG TABLET PO SCH ×2 (08:42→20:42)
[2020-12-28] MEDS: cefTRIAXone 2,000 MG in SODIUM CHLORIDE 0.9% 100 ML IV SCH (11:04)
[2020-12-28 21:27] VITALS: BP 111/75
== END 2020-12-28 21:11 | disposition hospice, home (50) | DRG 371 ==
LOC: EDUNIT# → SUATTDRO → EDBD → N.EDINP 03:16 → N.ED 03:16 → SUATTDRO 05:45 → N.EDINP 14:46 → N.3E 15:04 → SUATTDRO 12-23 09:11
PROVIDERS: ADMIT Internal Medicine; ATTEND Internal Medicine

== ENCOUNTER 2021-01-09 20:12 | Inpatient (IN) ==
[2021-01-09] MEDS ORDERED: methylPREDNISolone SOD SUC 125 MG/2 ML VIAL IV STA (20:45)
[2021-01-09] MEDS ORDERED: ONDANSETRON 4 MG/2 ML VIAL IV STA (20:45)
[2021-01-09] MEDS ORDERED: FUROSEMIDE 40 MG/4 ML VIAL IV STA (20:45)
[2021-01-09] MEDS ORDERED: ALBUTEROL/IPRATROPIUM 3 ML NEB RESP TX STA (20:45)
[2021-01-09 21:32] LABS: Basophils # 0.1 10*3/uL (0.0-0.2); Basophils % 0.7 % (0.0-0.8); Eosinophils # 0.2 10*3/uL (0.0-0.87); Eosinophils % 2.2 % (0.00-10.9); Immature Granulocytes % 0.4 %; Immature Granulocytes Absolute 0.03 #; Lymphocytes # 1.6 10*3/uL (1.4-4.0); Lymphocytes % 23.1 % (21.2-54.2); Mean Corpuscular HGB Conc 30.8 GM/DL (32-36); Mean Corpuscular Volume 76.1 FL (87-102); Mean Platelet Volume 10.6 FL (9.6-12.0); Monocytes % 18.3 % (1.7-12.7); Neutrophils % 55.3 % (38.7-73.9); Platelet Count 243 T/CUMM (130-400); Red Blood Count 2.09 MC/CUMM (3.8-5.5); Red Cell Distribution Width 25.8 % (9.3-17.3); White Blood Count 6.7 T/CUMM (4-12)
[2021-01-09 21:38] LABS: Hematocrit 15.9 VOL% (42.0-52.0); Hemoglobin 4.9 GM/DL (14.0-18.0)
[2021-01-09 21:49] LABS: INR 1.2; PT Patient Result 13.2 SECS (10.5-12.0)
[2021-01-09 22:02] LABS: Alanine Aminotransferase 35 U/L (16-61); Albumin 1.8 G/DL (3.4-5.0); Alkaline Phosphatase 253 U/L (45-117); Amylase 235 U/L (25-115); Aspartate Amino Transferase 55 U/L (0-37); Blood Urea Nitrogen 33 MG/DL (7-18); Calcium 7.5 MG/DL (8.5-10.1); Carbon Dioxide 28 MMOL/L (21-32); Estimated Glom Filtration Rate 23 ML/MIN; Glucose 71 MG/DL (74-106); Osmolality,Calculated 264.8 MOS/KG (273-304); Potassium 4.1 MMOL/L (3.5-5.1); Sodium 130 MMOL/L (136-145); Total Protein 7.9 G/DL (6.4-8.2)
[2021-01-09] MEDS ORDERED: DEXTROSE 50% 25 GM/50 ML VIAL IV STA (22:07)
[2021-01-09] MEDS ORDERED: SODIUM CHLORIDE 0.9% 1,000 ML IV PRN (22:16)
[2021-01-09] MEDS ORDERED: PROMETHAZINE 25 MG/1 ML VIAL IM STA (22:32)
[2021-01-09 22:35] LABS: Basophils # 0.1 10*3/uL (0.0-0.2); Eosinophils # 0.1 10*3/uL (0.0-0.87); Eosinophils % 1.9 % (0.00-10.9); Hematocrit 23.2 VOL% (42.0-52.0); Hemoglobin 7.2 GM/DL (14.0-18.0); Immature Granulocytes % 0.2 %; Immature Granulocytes Absolute 0.01 #; Lymphocytes # 1.4 10*3/uL (1.4-4.0); Lymphocytes % 24.6 % (21.2-54.2); Mean Corpuscular Volume 75.6 FL (87-102); Mean Platelet Volume 9.7 FL (9.6-12.0); Monocytes % 20.3 % (1.7-12.7); Platelet Count 224 T/CUMM (130-400); Red Blood Count 3.07 MC/CUMM (3.8-5.5); Red Cell Distribution Width 25.9 % (9.3-17.3); White Blood Count 5.8 T/CUMM (4-12)
[2021-01-09] MEDS ORDERED: guaiFENesin/DM ER 600-30 MG TABLET PO PRN (22:53)
[2021-01-09] MEDS ORDERED: ZALEPLON 5 MG CAPSULE PO PRN (22:53)
[2021-01-09] MEDS ORDERED: GLUCAGON 1 MG VIAL IM PRN (22:53)
[2021-01-09] MEDS ORDERED: NICOTINE 21 MG/24 HR PATCH TRANSDERM PRN (22:53)
[2021-01-09] MEDS ORDERED: hydrALAZINE 20 MG/1 ML VIAL IV PRN (22:53)
[2021-01-09] MEDS ORDERED: ACETAMINOPHEN 325 MG TABLET PO PRN (22:53)
[2021-01-09] MEDS ORDERED: diphenhydrAMINE CAP 25 MG CAPSULE PO PRN (22:53)
[2021-01-09] MEDS ORDERED: DEXTROSE 50% 25 GM/50 ML VIAL IV PRN (22:53)
[2021-01-09 23:41] LABS: Lymphocytes 16 % (20-55); Platelet Estimate Normal; Segmented Neutrophils 76 % (50-85); Total Cells Counted 100
[2021-01-09 23:42] LABS: Hypochromasia 1+; Microcytosis 2+
[2021-01-09 23:43] LABS: Anisocytosis 1+; Spherocytes Slight
[2021-01-09 23:44] LABS: Polychromasia Slight; Target Cells Slight
[2021-01-10] MEDS: ALBUTEROL/IPRATROPIUM 3 ML NEB RESP TX SCH ×4 (00:05→20:04)
[2021-01-10] MEDS: MORPHINE 4 MG/1 ML VIAL IV PRN ×3 (01:42→20:18)
[2021-01-10] MEDS: cefTRIAXone 1,000 MG in SODIUM CHLORIDE 0.9% 100 ML IV SCH (01:44)
[2021-01-10 02:16] LABS: Hypochromasia 1+; Lymphocytes 20 % (20-55); Microcytosis 2+; Platelet Estimate Normal; Polychromasia Slight; Segmented Neutrophils 68 % (50-85); Total Cells Counted 100
[2021-01-10 02:17] LABS: Spherocytes Slight; Target Cells Few
[2021-01-10 04:58] LABS: Basophils % 0.8 % (0.0-0.8); Hematocrit 25.3 VOL% (42.0-52.0); Hemoglobin 7.8 GM/DL (14.0-18.0); Immature Granulocytes % 0.6 %; Immature Granulocytes Absolute 0.03 #; Lymphocytes # 0.6 10*3/uL (1.4-4.0); Mean Corpuscular HGB Conc 30.8 GM/DL (32-36); Mean Platelet Volume 10.9 FL (9.6-12.0); Monocytes % 2.6 % (1.7-12.7); Platelet Count 258 T/CUMM (130-400); Red Blood Count 3.33 MC/CUMM (3.8-5.5); Red Cell Distribution Width 26.1 % (9.3-17.3)
[2021-01-10 05:24] LABS: Hypochromasia 2+
[2021-01-10 05:25] LABS: Anisocytosis 1+; Macrocytosis 1+; Polychromasia Slight; Target Cells Few
[2021-01-10 05:26] LABS: Platelet Estimate Normal
[2021-01-10 08:02] LABS: Hematocrit 26.2 VOL% (42.0-52.0); Hemoglobin 7.8 GM/DL (14.0-18.0)
[2021-01-10] MEDS: ONDANSETRON 4 MG/2 ML VIAL IV PRN ×3 (08:25→20:18)
[2021-01-10] MEDS: PANTOPRAZOLE 40 MG TABLET PO SCH (09:32)
[2021-01-10] MEDS: BISACODYL 5 MG TABLET PO SCH (09:32)
[2021-01-10 15:06] LABS: Glucose,Peritoneal Fluid 89 MG/DL; Total Protein,Peritoneal Fluid 3.7 G/DL
[2021-01-10] MEDS: PROMETHAZINE 25 MG/1 ML VIAL IM PRN ×2 (15:09→22:37)
[2021-01-10 15:47] LABS: Neutrophils,Peritoneal Fluid 2 %
[2021-01-10 15:48] LABS: RBC,Peritoneal Fluid 9837 T/CUMM
[2021-01-10] MEDS: METOPROLOL TARTRATE 25 MG TABLET PO SCH (20:17)
[2021-01-10] MEDS ORDERED: METOPROLOL TARTRATE 50 MG TABLET PO SCH (21:00)
[2021-01-11] MEDS: ALBUTEROL/IPRATROPIUM 3 ML NEB RESP TX SCH ×2 (00:15→07:35)
[2021-01-11] MEDS: cefTRIAXone 1,000 MG in SODIUM CHLORIDE 0.9% 100 ML IV SCH (01:42)
[2021-01-11] MEDS: MORPHINE 4 MG/1 ML VIAL IV PRN ×3 (03:54→14:40)
[2021-01-11 05:52] LABS: Basophils % 0.2 % (0.0-0.8); Hemoglobin 7.4 GM/DL (14.0-18.0); Immature Granulocytes % 0.4 %; Immature Granulocytes Absolute 0.02 #; Lymphocytes % 21.3 % (21.2-54.2); Mean Corpuscular HGB Conc 30.8 GM/DL (32-36); Mean Platelet Volume 10.3 FL (9.6-12.0); Monocytes % 16.4 % (1.7-12.7); Neutrophils % 61.7 % (38.7-73.9); Platelet Count 296 T/CUMM (130-400); Red Cell Distribution Width 25.9 % (9.3-17.3); White Blood Count 4.6 T/CUMM (4-12)
[2021-01-11 06:12] LABS: Calcium 7.6 MG/DL (8.5-10.1); Osmolality,Calculated 263.6 MOS/KG (273-304)
[2021-01-11 06:18] LABS: Eosinophils 2 % (0-10); Hypochromasia 1+; Lymphocytes 15 % (20-55); Platelet Estimate Normal; Segmented Neutrophils 72 % (50-85); Target Cells Few; Total Cells Counted 100
[2021-01-11 06:19] LABS: Microcytosis 1+
[2021-01-11] MEDS: ONDANSETRON 4 MG/2 ML VIAL IV PRN (06:50)
[2021-01-11] MEDS: BISACODYL 5 MG TABLET PO SCH (08:31)
[2021-01-11] MEDS: METOPROLOL TARTRATE 25 MG TABLET PO SCH (08:35)
[2021-01-11] MEDS: PANTOPRAZOLE 40 MG TABLET PO SCH (08:35)
[2021-01-11 08:57] VITALS: BP 139/101
== END 2021-01-11 16:22 | disposition home or self-care (01) | DRG 432 ==
LOC: N.ED 20:12 → N.EDINP 22:53 → N.TELEN 01-10 02:22
PROVIDERS: ADMIT Internal Medicine; ATTEND Internal Medicine

== ENCOUNTER 2021-01-15 00:08 | Inpatient (IN) ==
[2021-01-15 03:32] LABS: Basophils # 0.1 10*3/uL (0.0-0.2); Basophils % 1.2 % (0.0-0.8); Eosinophils # 0.3 10*3/uL (0.0-0.87); Hematocrit 26.1 VOL% (42.0-52.0); Hemoglobin 7.9 GM/DL (14.0-18.0); Immature Granulocytes % 0.5 %; Immature Granulocytes Absolute 0.04 #; Lymphocytes # 1.9 10*3/uL (1.4-4.0); Lymphocytes % 25.9 % (21.2-54.2); Mean Corpuscular HGB Conc 30.3 GM/DL (32-36); Mean Corpuscular Volume 77.9 FL (87-102); Mean Platelet Volume 10.1 FL (9.6-12.0); Monocytes % 12.1 % (1.7-12.7); Neutrophils % 56.3 % (38.7-73.9); Platelet Count 277 T/CUMM (130-400); Red Blood Count 3.35 MC/CUMM (3.8-5.5); Red Cell Distribution Width 26.5 % (9.3-17.3); White Blood Count 7.5 T/CUMM (4-12)
[2021-01-15] MEDS ORDERED: ONDANSETRON 4 MG/2 ML VIAL IV ONE (03:40)
[2021-01-15] MEDS ORDERED: MORPHINE 4 MG/1 ML VIAL IV STA (03:40)
[2021-01-15 03:53] LABS: Eosinophils 8 % (0-10); Hypochromasia Slight; Lymphocytes 17 % (20-55); Microcytosis 1+; Platelet Estimate Normal; Segmented Neutrophils 67 % (50-85); Target Cells Few; Total Cells Counted 100
[2021-01-15 03:54] LABS: Albumin 2.1 G/DL (3.4-5.0); Bilirubin,Total 0.5 MG/DL (0.2-1.0); Calcium 7.4 MG/DL (8.5-10.1); Osmolality,Calculated 271.7 MOS/KG (273-304); Potassium 4.5 MMOL/L (3.5-5.1); Total Protein 8.5 G/DL (6.4-8.2)
[2021-01-15] MEDS ORDERED: PROMETHAZINE 25 MG/1 ML VIAL ONE (04:25)
[2021-01-15] MEDS ORDERED: PROMETHAZINE 25 MG/1 ML VIAL IM STA (04:31)
[2021-01-15] MEDS ORDERED: GLUCAGON 1 MG VIAL IM PRN (05:13)
[2021-01-15] MEDS ORDERED: DEXTROSE 50% 25 GM/50 ML VIAL IV PRN (05:13)
[2021-01-15] MEDS ORDERED: HYDROmorphone 2 MG/1 ML VIAL IV STA (05:31)
[2021-01-15] MEDS ORDERED: HYDROmorphone 2 MG/1 ML VIAL ONE (05:32)
[2021-01-15] MEDS: PANTOPRAZOLE 40 MG TABLET PO SCH (08:09)
[2021-01-15] MEDS: MORPHINE 4 MG/1 ML VIAL IV PRN ×2 (08:10→16:50)
[2021-01-15] MEDS: ONDANSETRON 4 MG/2 ML VIAL IV PRN ×2 (08:10→16:52)
[2021-01-15] MEDS: PROMETHAZINE 25 MG/1 ML VIAL IM PRN (18:25)
[2021-01-15] MEDS: METOPROLOL TARTRATE 50 MG TABLET PO SCH (21:17)
[2021-01-16] MEDS: MORPHINE 4 MG/1 ML VIAL IV PRN ×4 (00:01→13:52)
[2021-01-16] MEDS: ONDANSETRON 4 MG/2 ML VIAL IV PRN ×3 (00:01→13:51)
[2021-01-16 04:42] LABS: Basophils # 0.1 10*3/uL (0.0-0.2); Basophils % 1.1 % (0.0-0.8); Eosinophils # 0.2 10*3/uL (0.0-0.87); Eosinophils % 4.2 % (0.00-10.9); Hematocrit 24.5 VOL% (42.0-52.0); Hemoglobin 7.2 GM/DL (14.0-18.0); Immature Granulocytes % 0.5 %; Immature Granulocytes Absolute 0.03 #; Lymphocytes # 1.8 10*3/uL (1.4-4.0); Lymphocytes % 33.3 % (21.2-54.2); Mean Corpuscular HGB Conc 29.4 GM/DL (32-36); Mean Corpuscular Volume 78.5 FL (87-102); Mean Platelet Volume 9.6 FL (9.6-12.0); Monocytes % 16.5 % (1.7-12.7); Neutrophils % 44.4 % (38.7-73.9); Platelet Count 255 T/CUMM (130-400); Red Blood Count 3.12 MC/CUMM (3.8-5.5); Red Cell Distribution Width 25.5 % (9.3-17.3); White Blood Count 5.5 T/CUMM (4-12)
[2021-01-16 05:02] LABS: Bilirubin,Total 0.6 MG/DL (0.2-1.0); Calcium 7.2 MG/DL (8.5-10.1); Osmolality,Calculated 280.4 MOS/KG (273-304); Potassium 5.3 MMOL/L (3.5-5.1); Total Protein 7.9 G/DL (6.4-8.2)
[2021-01-16 05:06] LABS: Band Neutrophils 1 % (0-10); Eosinophils 7 % (0-10); Hypochromasia 2+; Lymphocytes 34 % (20-55); Segmented Neutrophils 46 % (50-85); Total Cells Counted 100
[2021-01-16 05:07] LABS: Anisocytosis 1+; Microcytosis 1+; Polychromasia Slight; Target Cells Slight
[2021-01-16 05:08] LABS: Ovalocytes Slight; Platelet Estimate Normal
[2021-01-16] MEDS: PANTOPRAZOLE 40 MG TABLET PO SCH (08:10)
[2021-01-16] MEDS: SERTRALINE 50 MG TABLET PO SCH (08:10)
[2021-01-16] MEDS: METOPROLOL TARTRATE 50 MG TABLET PO SCH ×2 (08:10→20:37)
[2021-01-16] MEDS: PROMETHAZINE 25 MG/1 ML VIAL IM PRN ×2 (10:41→16:52)
[2021-01-16] MEDS: HYDROmorphone 2 MG/1 ML VIAL IV PRN (19:08)
[2021-01-17] MEDS: HYDROmorphone 2 MG/1 ML VIAL IV PRN ×3 (00:29→11:57)
[2021-01-17 05:09] LABS: Basophils # 0.1 10*3/uL (0.0-0.2); Basophils % 1.2 % (0.0-0.8); Eosinophils # 0.3 10*3/uL (0.0-0.87); Eosinophils % 5.1 % (0.00-10.9); Hematocrit 23.9 VOL% (42.0-52.0); Immature Granulocytes % 0.7 %; Immature Granulocytes Absolute 0.04 #; Lymphocytes # 2.3 10*3/uL (1.4-4.0); Lymphocytes % 38.3 % (21.2-54.2); Mean Corpuscular HGB Conc 29.3 GM/DL (32-36); Mean Corpuscular Volume 78.6 FL (87-102); Mean Platelet Volume 10.2 FL (9.6-12.0); Monocytes % 14.2 % (1.7-12.7); Neutrophils % 40.5 % (38.7-73.9); Platelet Count 263 T/CUMM (130-400); Red Blood Count 3.04 MC/CUMM (3.8-5.5); Red Cell Distribution Width 25.5 % (9.3-17.3); White Blood Count 5.9 T/CUMM (4-12)
[2021-01-17 05:31] LABS: Calcium 7.6 MG/DL (8.5-10.1); Osmolality,Calculated 277.4 MOS/KG (273-304); Potassium 5.4 MMOL/L (3.5-5.1)
[2021-01-17 05:41] LABS: Eosinophils 6 % (0-10); Hypochromasia 1+; Lymphocytes 47 % (20-55); Microcytosis Slight; Nucleated Red Blood Cells 1 (0-5); Platelet Estimate Normal; Segmented Neutrophils 36 % (50-85); Target Cells Few; Total Cells Counted 100
[2021-01-17] MEDS: PANTOPRAZOLE 40 MG TABLET PO SCH (08:08)
[2021-01-17] MEDS: METOPROLOL TARTRATE 50 MG TABLET PO SCH ×2 (08:08→20:24)
[2021-01-17] MEDS: SERTRALINE 50 MG TABLET PO SCH (08:08)
[2021-01-17] MEDS: ONDANSETRON 4 MG/2 ML VIAL IV PRN (12:27)
[2021-01-17] MEDS ORDERED: SODIUM CHLORIDE 0.9% 1,000 ML IV PRN (16:00)
[2021-01-17 16:23] LABS: % Iron Saturation 20.5 % (18-50)
[2021-01-17] MEDS ORDERED: SODIUM CHLORIDE 0.9% 250 ML IV ONE (19:23)
[2021-01-17 21:11] LABS: Folate 4.34 NG/ML (5.38-24.0)
[2021-01-18] MEDS: ONDANSETRON 4 MG/2 ML VIAL IV PRN ×2 (01:24→12:19)
[2021-01-18] MEDS: HYDROmorphone 2 MG/1 ML VIAL IV PRN ×2 (06:42→12:20)
[2021-01-18 08:29] VITALS: BP 103/72
[2021-01-18] MEDS ORDERED: METOPROLOL TARTRATE 25 MG TABLET PO SCH (09:00)
[2021-01-18 09:17] LABS: Hepatitis B Core IgM Quant < 0.05 Index; Hepatitis B Surface Ag Quant < 0.10 Index; Hepatitis B Surface Ag Result Non-Reactive (NonReactive); Hepatitis C Virus Ab Quant 0.13 Index; Hepatitis C Virus Ab Result Non-Reactive (NonReactive)
[2021-01-18] MEDS: PANTOPRAZOLE 40 MG TABLET PO SCH (13:55)
[2021-01-18] MEDS: SERTRALINE 50 MG TABLET PO SCH (13:55)
== END 2021-01-18 14:28 | disposition home or self-care (01) | DRG 432 ==
LOC: N.EDINP 00:08 → N.ED 00:08 → N.TELEN 07:07
PROVIDERS: ADMIT Internal Medicine; ATTEND Internal Medicine

== ENCOUNTER 2021-01-21 18:47 | Inpatient (IN) ==
[2021-01-21] MEDS ORDERED: ALBUTEROL/IPRATROPIUM 3 ML NEB RESP TX STA (19:29)
[2021-01-21] MEDS ORDERED: methylPREDNISolone SOD SUC 125 MG/2 ML VIAL IV STA (19:29)
[2021-01-21] MEDS ORDERED: ONDANSETRON 4 MG/2 ML VIAL IV STA (19:29)
[2021-01-21] MEDS ORDERED: PROMETHAZINE 25 MG/1 ML VIAL ONE (20:02)
[2021-01-21] MEDS ORDERED: PROMETHAZINE 25 MG/1 ML VIAL IM STA (20:03)
[2021-01-21 20:08] LABS: Basophils % 0.8 % (0.0-0.8); Eosinophils # 0.1 10*3/uL (0.0-0.87); Eosinophils % 2.6 % (0.00-10.9); Hematocrit 28.9 VOL% (42.0-52.0); Hemoglobin 8.5 GM/DL (14.0-18.0); Immature Granulocytes % 0.5 %; Immature Granulocytes Absolute 0.02 #; Lymphocytes # 1.5 10*3/uL (1.4-4.0); Lymphocytes % 37.8 % (21.2-54.2); Mean Corpuscular HGB Conc 29.4 GM/DL (32-36); Mean Corpuscular Volume 81.6 FL (87-102); Mean Platelet Volume 9.5 FL (9.6-12.0); Neutrophils % 49.3 % (38.7-73.9); Platelet Count 176 T/CUMM (130-400); Red Blood Count 3.54 MC/CUMM (3.8-5.5); Red Cell Distribution Width 24.5 % (9.3-17.3); White Blood Count 3.9 T/CUMM (4-12)
[2021-01-21 20:22] LABS: INR 1.4; PT Patient Result 15.8 SECS (10.5-12.0)
[2021-01-21 20:35] LABS: Alanine Aminotransferase 14 U/L (16-61); Albumin 1.9 G/DL (3.4-5.0); Alkaline Phosphatase 213 U/L (45-117); Amylase 82 U/L (25-115); Aspartate Amino Transferase 29 U/L (0-37); Blood Urea Nitrogen 59 MG/DL (7-18); Calcium 7.2 MG/DL (8.5-10.1); Carbon Dioxide 19 MMOL/L (21-32); Estimated Glom Filtration Rate 10 ML/MIN; Glucose 63 MG/DL (74-106); Osmolality,Calculated 280.4 MOS/KG (273-304); Potassium 5.1 MMOL/L (3.5-5.1); Sodium 133 MMOL/L (136-145); Total Protein 7.1 G/DL (6.4-8.2)
[2021-01-21] MEDS ORDERED: PIPERACILLIN/TAZOBACTAM 2,250 MG in SODIUM CHLORIDE 0.9% 100 ML IV STA (20:35)
[2021-01-21 21:39] LABS: Anisocytosis 4+; Eosinophils 1 % (0-10); Hypochromasia 3+; Lymphocytes 42 % (20-55); Microcytosis 3+; Myelocytes 2 %; Segmented Neutrophils 49 % (50-85); Total Cells Counted 100
[2021-01-21] MEDS ORDERED: DEXTROSE 50% 25 GM/50 ML VIAL IV STA (21:45)
[2021-01-21] MEDS ORDERED: hydrALAZINE 20 MG/1 ML VIAL IV PRN (22:55)
[2021-01-21] MEDS ORDERED: GLUCAGON 1 MG VIAL IM PRN (22:55)
[2021-01-21] MEDS ORDERED: diphenhydrAMINE CAP 25 MG CAPSULE PO PRN (22:55)
[2021-01-21] MEDS ORDERED: NICOTINE 21 MG/24 HR PATCH TRANSDERM PRN (22:55)
[2021-01-21] MEDS ORDERED: guaiFENesin/DM ER 600-30 MG TABLET PO PRN (22:55)
[2021-01-21] MEDS ORDERED: DEXTROSE 50% 25 GM/50 ML VIAL IV PRN (22:55)
[2021-01-22] MEDS ORDERED: SODIUM CHLORIDE 0.9% 500 ML IV ONE (00:53)
[2021-01-22] MEDS ORDERED: VANCOMYCIN INJ 500 MG in SODIUM CHLORIDE 0.9% 100 ML IV PRN (01:00)
[2021-01-22] MEDS ORDERED: ROCURONIUM 100 MG/10 ML VIAL IV ONE ×2 (01:26→04:16)
[2021-01-22] MEDS ORDERED: ETOMIDATE 20 MG/10 ML VIAL IV ONE ×2 (01:26→04:16)
[2021-01-22] MEDS ORDERED: PHENYLEPHRINE DRIP 40 MG/250 ML PREMIX IV ONE (01:31)
[2021-01-22 01:41] LABS: ABG Base Excess -8.8 MMOL/L (-2.5-2.5); ABG HCO3 17.3 MMOL/L (20-26); ABG Oxygen Saturation 93.4 % (95-100); ABG PCO2 40.6 MM HG (35-48); ABG PH 7.252 (7.35-7.45); ABG PO2 79.2 MM HG (80-95); ABG TCO2 16.9 MMOL/L (23-27)
[2021-01-22] MEDS ORDERED: NOREPINEPHRINE 8 MG in SODIUM CHLORIDE 0.9% 242 ML IV PRN (01:50)
[2021-01-22] MEDS ORDERED: NOREPINEPHRINE 4 MG/4 ML VIAL IV ONE ×3 (01:50→11:17)
[2021-01-22] MEDS: PHENYLEPHRINE DRIP 40 MG/250 ML PREMIX IV PRN ×2 (01:52→04:14)
[2021-01-22] MEDS ORDERED: PHENYLEPHRINE INJ 160 MG in SODIUM CHLORIDE 0.9% 234 ML IV PRN (02:30)
[2021-01-22 02:31] LABS: Basophils % 0.4 % (0.0-0.8); Eosinophils % 0.8 % (0.00-10.9); Hematocrit 29.1 VOL% (42.0-52.0); Hemoglobin 8.4 GM/DL (14.0-18.0); Immature Granulocytes % 0.8 %; Immature Granulocytes Absolute 0.02 #; Lymphocytes # 0.9 10*3/uL (1.4-4.0); Lymphocytes % 33.3 % (21.2-54.2); Mean Corpuscular HGB Conc 28.9 GM/DL (32-36); Mean Corpuscular Volume 83.1 FL (87-102); Mean Platelet Volume 9.3 FL (9.6-12.0); NRBC # 0.07 10*3/uL; Neutrophils % 55.7 % (38.7-73.9); Platelet Count 143 T/CUMM (130-400); Red Cell Distribution Width 24.9 % (9.3-17.3); White Blood Count 2.6 T/CUMM (4-12)
[2021-01-22 02:38] LABS: Calcium 7.4 MG/DL (8.5-10.1); Osmolality,Calculated 277.7 MOS/KG (273-304); Potassium 5.8 MMOL/L (3.5-5.1)
[2021-01-22] MEDS ORDERED: ALBUMIN 25% 25 GM/100 ML VIAL IV ONE (02:59)
[2021-01-22] MEDS ORDERED: VANCOMYCIN INJ 1,500 MG in SODIUM CHLORIDE 0.9% 500 ML IV ONE (03:00)
[2021-01-22] MEDS ORDERED: DOPamine 800 MG/250 ML PREMIX IV ONE (03:08)
[2021-01-22] MEDS: NOREPINEPHRINE 16 MG in SODIUM CHLORIDE 0.9% 234 ML IV PRN ×3 (04:09→11:13)
[2021-01-22 04:21] LABS: Eosinophils 1 % (0-10); Lymphocytes 39 % (20-55); Nucleated Red Blood Cells 1 (0-5); Platelet Estimate Adequate; Segmented Neutrophils 51 % (50-85); Total Cells Counted 100
[2021-01-22 04:22] LABS: Hypochromasia 1+
[2021-01-22] MEDS: ALBUTEROL/IPRATROPIUM 3 ML NEB RESP TX SCH ×4 (04:25→19:57)
[2021-01-22 04:27] LABS: INR 1.7; PT Patient Result 18.4 SECS (10.5-12.0); Partial Thromboplastin Time 45.3 SECS (23.9-33.8)
[2021-01-22] MEDS: HYDROCORTISONE 100 MG VIAL IV SCH ×3 (04:29→18:19)
[2021-01-22] MEDS: DOPamine 800 MG/250 ML PREMIX IV PRN (05:20)
[2021-01-22 05:31] LABS: ABG HCO3 17.2 MMOL/L (20-26); ABG PCO2 48.7 MM HG (35-48); ABG TCO2 17.9 MMOL/L (23-27)
[2021-01-22 05:32] LABS: ABG PH 7.198 (7.35-7.45)
[2021-01-22] MEDS ORDERED: SODIUM BICARBONATE 50 MEQ/50 ML VIAL IV ONE (05:49)
[2021-01-22 07:10] LABS: Albumin 2.4 G/DL (3.4-5.0); Bilirubin,Total 1.2 MG/DL (0.2-1.0); Calcium 7.4 MG/DL (8.5-10.1); Osmolality,Calculated 284.2 MOS/KG (273-304); Potassium 4.9 MMOL/L (3.5-5.1); Total Protein 7.8 G/DL (6.4-8.2)
[2021-01-22] MEDS: FAMOTIDINE 20 MG/2 ML VIAL IV SCH (09:09)
[2021-01-22] MEDS: cefTRIAXone 1,000 MG in SODIUM CHLORIDE 0.9% 100 ML IV SCH (16:00)
[2021-01-22] MEDS: metroNIDAZOLE INJ 500 MG/100 ML PREMIX IV SCH ×2 (16:12→20:36)
[2021-01-23] MEDS: cefTRIAXone 1,000 MG in SODIUM CHLORIDE 0.9% 100 ML IV SCH ×2 (01:26→14:24)
[2021-01-23] MEDS: HYDROCORTISONE 100 MG VIAL IV SCH ×3 (01:26→18:03)
[2021-01-23] MEDS: metroNIDAZOLE INJ 500 MG/100 ML PREMIX IV SCH ×4 (01:27→20:15)
[2021-01-23] MEDS: ALBUTEROL/IPRATROPIUM 3 ML NEB RESP TX SCH ×4 (01:40→19:33)
[2021-01-23 04:55] LABS: Hematocrit 28.7 VOL% (42.0-52.0); Immature Granulocytes % 0.5 %; Immature Granulocytes Absolute 0.04 #; Lymphocytes # 0.7 10*3/uL (1.4-4.0); Mean Corpuscular HGB Conc 31.4 GM/DL (32-36); Mean Corpuscular Volume 76.9 FL (87-102); Mean Platelet Volume 9.8 FL (9.6-12.0); Monocytes % 4.2 % (1.7-12.7); NRBC # 0.04 10*3/uL; Neutrophils % 86.3 % (38.7-73.9); Platelet Count 167 T/CUMM (130-400); Red Blood Count 3.73 MC/CUMM (3.8-5.5); Red Cell Distribution Width 24.1 % (9.3-17.3); White Blood Count 7.4 T/CUMM (4-12)
[2021-01-23 04:55] LABS: ABG Base Excess 0.5 MMOL/L (-2.5-2.5); ABG HCO3 24.9 MMOL/L (20-26); ABG Oxygen Saturation 99.9 % (95-100); ABG PH 7.399 (7.35-7.45); ABG TCO2 23.3 MMOL/L (23-27)
[2021-01-23 05:03] LABS: INR 1.4; PT Patient Result 15.6 SECS (10.5-12.0)
[2021-01-23 05:13] LABS: Albumin 2.1 G/DL (3.4-5.0); Bilirubin,Total 0.8 MG/DL (0.2-1.0); Calcium 7.1 MG/DL (8.5-10.1); Hypochromasia 1+; Osmolality,Calculated 281.1 MOS/KG (273-304); Ovalocytes Slight; Platelet Estimate Adequate; Potassium 4.9 MMOL/L (3.5-5.1); Total Protein 7.6 G/DL (6.4-8.2)
[2021-01-23 05:14] LABS: Microcytosis Slight
[2021-01-23] MEDS: FAMOTIDINE 20 MG/2 ML VIAL IV SCH (08:38)
[2021-01-23] MEDS ORDERED: VANCOMYCIN INJ 500 MG in SODIUM CHLORIDE 0.9% 100 ML IV ONE (09:00)
[2021-01-23] MEDS ORDERED: AMIODARONE INJ 150 MG in DEXTROSE 5% 100 ML IV ONE (10:36)
[2021-01-23] MEDS ORDERED: ENOXAPARIN 80 MG/0.8 ML SYRINGE SUBCUT SCH (11:00)
[2021-01-23] MEDS ORDERED: AMIODARONE INJ 450 MG in DEXTROSE 5% 241 ML IV SCH (11:00)
[2021-01-23] MEDS: DOPamine 800 MG/250 ML PREMIX IV PRN (11:19)
[2021-01-23] MEDS: AMIODARONE INJ 450 MG in DEXTROSE 5% 241 ML IV SCH (16:41)
[2021-01-23] MEDS: INSULIN REGULAR 100 UNIT/ML SUBCUT SCH (18:02)
[2021-01-24] MEDS: INSULIN REGULAR 100 UNIT/ML SUBCUT SCH ×5 (00:20→23:20)
[2021-01-24] MEDS: cefTRIAXone 1,000 MG in SODIUM CHLORIDE 0.9% 100 ML IV SCH ×2 (01:32→14:04)
[2021-01-24] MEDS: metroNIDAZOLE INJ 500 MG/100 ML PREMIX IV SCH ×3 (01:32→14:04)
[2021-01-24] MEDS: HYDROCORTISONE 100 MG VIAL IV SCH ×3 (01:32→15:56)
[2021-01-24] MEDS: ALBUTEROL/IPRATROPIUM 3 ML NEB RESP TX SCH ×4 (03:37→20:45)
[2021-01-24 03:50] LABS: ABG Base Excess -2.7 MMOL/L (-2.5-2.5); ABG HCO3 22.3 MMOL/L (20-26); ABG Oxygen Saturation 98.8 % (95-100); ABG PCO2 39.1 MM HG (35-48); ABG PH 7.374 (7.35-7.45); ABG PO2 151.7 MM HG (80-95); ABG TCO2 23.5 MMOL/L (23-27)
[2021-01-24 03:56] LABS: Basophils % 0.1 % (0.0-0.8); Hematocrit 27.7 VOL% (42.0-52.0); Hemoglobin 8.6 GM/DL (14.0-18.0); Lymphocytes % 9.8 % (21.2-54.2); Mean Platelet Volume 9.8 FL (9.6-12.0); NRBC # 0.26 10*3/uL; Neutrophils % 81.1 % (38.7-73.9); Platelet Count 211 T/CUMM (130-400); Red Blood Count 3.55 MC/CUMM (3.8-5.5); Red Cell Distribution Width 24.8 % (9.3-17.3); White Blood Count 10.3 T/CUMM (4-12)
[2021-01-24 04:12] LABS: Albumin 2.1 G/DL (3.4-5.0); Bilirubin,Total 0.6 MG/DL (0.2-1.0); Calcium 7.6 MG/DL (8.5-10.1); Osmolality,Calculated 275.5 MOS/KG (273-304); Potassium 5.1 MMOL/L (3.5-5.1); Total Protein 7.6 G/DL (6.4-8.2)
[2021-01-24 04:13] LABS: Hypochromasia 1+; Microcytosis 1+; Platelet Estimate Adequate
[2021-01-24 04:18] LABS: INR 1.5; PT Patient Result 16.6 SECS (10.5-12.0); Partial Thromboplastin Time 37.4 SECS (23.9-33.8)
[2021-01-24] MEDS: AMIODARONE INJ 450 MG in DEXTROSE 5% 241 ML IV SCH (07:50)
[2021-01-24] MEDS: FAMOTIDINE 20 MG/2 ML VIAL IV SCH (09:33)
[2021-01-24] MEDS ORDERED: EPOETIN ALFA-EPBX 2,000 UNIT/ML VIAL IV PRN (12:21)
[2021-01-24] MEDS: NOREPINEPHRINE 16 MG in SODIUM CHLORIDE 0.9% 234 ML IV PRN (15:54)
[2021-01-25] MEDS: HYDROCORTISONE 100 MG VIAL IV SCH ×3 (00:13→16:59)
[2021-01-25] MEDS: cefTRIAXone 1,000 MG in SODIUM CHLORIDE 0.9% 100 ML IV SCH ×2 (00:13→13:55)
[2021-01-25] MEDS: ALBUTEROL/IPRATROPIUM 3 ML NEB RESP TX SCH ×4 (01:38→19:24)
[2021-01-25 04:29] LABS: ABG Base Excess -1.7 MMOL/L (-2.5-2.5); ABG HCO3 23.5 MMOL/L (20-26); ABG Oxygen Saturation 97.2 % (95-100); ABG PH 7.366 (7.35-7.45); ABG PO2 99.9 MM HG (80-95); ABG TCO2 24.8 MMOL/L (23-27)
[2021-01-25 04:37] LABS: Basophils % 0.1 % (0.0-0.8); Hematocrit 27.1 VOL% (42.0-52.0); Hemoglobin 8.8 GM/DL (14.0-18.0); Immature Granulocytes % 0.7 %; Immature Granulocytes Absolute 0.08 #; Lymphocytes # 0.9 10*3/uL (1.4-4.0); Lymphocytes % 7.8 % (21.2-54.2); Mean Corpuscular HGB Conc 32.5 GM/DL (32-36); Mean Corpuscular Volume 76.6 FL (87-102); Mean Platelet Volume 10.5 FL (9.6-12.0); Monocytes % 9.1 % (1.7-12.7); NRBC # 0.76 10*3/uL; Neutrophils % 82.3 % (38.7-73.9); Platelet Count 211 T/CUMM (130-400); Red Blood Count 3.54 MC/CUMM (3.8-5.5); Red Cell Distribution Width 24.9 % (9.3-17.3)
[2021-01-25 04:52] LABS: Albumin 2.3 G/DL (3.4-5.0); Bilirubin,Total 1.1 MG/DL (0.2-1.0); Calcium 8.3 MG/DL (8.5-10.1); Osmolality,Calculated 283.5 MOS/KG (273-304); Potassium 5.3 MMOL/L (3.5-5.1)
[2021-01-25] MEDS: INSULIN REGULAR 100 UNIT/ML SUBCUT SCH ×4 (05:40→23:32)
[2021-01-25 05:47] LABS: Anisocytosis 2+; Hypochromasia Slight; Macrocytosis 1+; Platelet Estimate Normal; Target Cells Few
[2021-01-25 05:48] LABS: Poikilocytosis 1+; Polychromasia Slight; Tear Drop Cells Few
[2021-01-25] MEDS: FAMOTIDINE 20 MG/2 ML VIAL IV SCH (09:03)
[2021-01-25 17:32] LABS: Total Protein,Body Fluid 4.3 G/DL
[2021-01-25 18:09] LABS: Lymphocytes,Pleural Fluid 31 %; Monocytes,Pleural Fluid 5 %; Neutrophils,Pleural Fluid 64 %; RBC,Pleural Fluid 3126 T/CUMM
[2021-01-25 19:08] LABS: Total Protein 6.8 G/DL (6.4-8.2)
[2021-01-26] MEDS: cefTRIAXone 1,000 MG in SODIUM CHLORIDE 0.9% 100 ML IV SCH ×2 (00:07→13:10)
[2021-01-26] MEDS: HYDROCORTISONE 100 MG VIAL IV SCH ×3 (00:07→16:26)
[2021-01-26] MEDS: ALBUTEROL/IPRATROPIUM 3 ML NEB RESP TX SCH ×4 (01:16→20:20)
[2021-01-26 04:06] LABS: ABG Base Excess 2.4 MMOL/L (-2.5-2.5); ABG HCO3 26.6 MMOL/L (20-26); ABG Oxygen Saturation 99.7 % (95-100); ABG PCO2 40.9 MM HG (35-48); ABG PH 7.426 (7.35-7.45); ABG TCO2 25.1 MMOL/L (23-27)
[2021-01-26 04:24] LABS: Basophils % 0.1 % (0.0-0.8); Hematocrit 24.9 VOL% (42.0-52.0); Immature Granulocytes % 0.9 %; Immature Granulocytes Absolute 0.14 #; Lymphocytes % 6.3 % (21.2-54.2); Mean Corpuscular HGB Conc 32.1 GM/DL (32-36); Mean Corpuscular Volume 77.6 FL (87-102); Mean Platelet Volume 10.2 FL (9.6-12.0); Monocytes % 5.5 % (1.7-12.7); NRBC # 0.19 10*3/uL; Neutrophils % 87.2 % (38.7-73.9); Platelet Count 205 T/CUMM (130-400); Red Blood Count 3.21 MC/CUMM (3.8-5.5); Red Cell Distribution Width 24.9 % (9.3-17.3); White Blood Count 15.3 T/CUMM (4-12)
[2021-01-26 04:50] LABS: Hypochromasia 1+; Macrocytosis Slight; Platelet Estimate Adequate; Polychromasia Slight; Target Cells Slight
[2021-01-26 04:51] LABS: Albumin 2.2 G/DL (3.4-5.0); Bilirubin,Total 0.6 MG/DL (0.2-1.0); Calcium 8.3 MG/DL (8.5-10.1); Osmolality,Calculated 284.1 MOS/KG (273-304); Potassium 4.2 MMOL/L (3.5-5.1); Total Protein 7.5 G/DL (6.4-8.2)
[2021-01-26] MEDS: INSULIN REGULAR 100 UNIT/ML SUBCUT SCH ×2 (05:54→12:45)
[2021-01-26] MEDS: FAMOTIDINE 20 MG/2 ML VIAL IV SCH (08:43)
[2021-01-26] MEDS ORDERED: POLYETHYLENE GLYCOL POWDER 17 GM PACK PO PRN (12:43)
[2021-01-26] MEDS: MORPHINE 4 MG/1 ML VIAL IV PRN ×3 (13:10→22:39)
[2021-01-26] MEDS: carvediloL 25 MG TABLET PO SCH (21:06)
[2021-01-27] MEDS: HYDROCORTISONE 100 MG VIAL IV SCH ×4 (00:13→23:30)
[2021-01-27] MEDS: cefTRIAXone 1,000 MG in SODIUM CHLORIDE 0.9% 100 ML IV SCH ×2 (00:13→12:39)
[2021-01-27] MEDS: ALBUTEROL/IPRATROPIUM 3 ML NEB RESP TX SCH ×4 (01:49→19:25)
[2021-01-27] MEDS: MORPHINE 4 MG/1 ML VIAL IV PRN ×4 (02:42→14:57)
[2021-01-27 03:06] LABS: ABG Base Excess 1.5 MMOL/L (-2.5-2.5); ABG HCO3 26.4 MMOL/L (20-26); ABG Oxygen Saturation 98.7 % (95-100); ABG PH 7.406 (7.35-7.45); ABG TCO2 27.7 MMOL/L (23-27); Allen Test Positive
[2021-01-27 03:35] LABS: Basophils % 0.1 % (0.0-0.8); Hematocrit 24.5 VOL% (42.0-52.0); Hemoglobin 7.6 GM/DL (14.0-18.0); Immature Granulocytes % 0.7 %; Immature Granulocytes Absolute 0.08 #; Lymphocytes # 0.8 10*3/uL (1.4-4.0); Lymphocytes % 6.8 % (21.2-54.2); Mean Corpuscular Volume 78.3 FL (87-102); Monocytes % 5.7 % (1.7-12.7); NRBC # 0.05 10*3/uL; Neutrophils % 86.7 % (38.7-73.9); Platelet Count 177 T/CUMM (130-400); Red Blood Count 3.13 MC/CUMM (3.8-5.5); Red Cell Distribution Width 25.5 % (9.3-17.3); White Blood Count 11.4 T/CUMM (4-12)
[2021-01-27 03:50] LABS: Albumin 1.9 G/DL (3.4-5.0); Bilirubin,Total 0.5 MG/DL (0.2-1.0); Potassium 4.2 MMOL/L (3.5-5.1); Total Protein 6.9 G/DL (6.4-8.2)
[2021-01-27 03:58] LABS: Hypochromasia 2+; Macrocytosis Slight; Ovalocytes Slight; Platelet Estimate Adequate
[2021-01-27 03:59] LABS: Polychromasia Slight; Target Cells Slight
[2021-01-27] MEDS: ONDANSETRON 4 MG/2 ML VIAL IV PRN (05:26)
[2021-01-27] MEDS: amLODIPine 10 MG TABLET PO SCH (08:57)
[2021-01-27] MEDS: carvediloL 25 MG TABLET PO SCH ×2 (08:57→20:42)
[2021-01-27] MEDS: FAMOTIDINE 20 MG/2 ML VIAL IV SCH (08:57)
[2021-01-27] MEDS: LORazepam 1 MG TABLET PO PRN (14:29)
[2021-01-27] MEDS: PROMETHAZINE 25 MG/1 ML VIAL IM PRN (20:43)
[2021-01-28] MEDS: cefTRIAXone 1,000 MG in SODIUM CHLORIDE 0.9% 100 ML IV SCH (01:26)
[2021-01-28] MEDS: ALBUTEROL/IPRATROPIUM 3 ML NEB RESP TX SCH ×4 (01:30→19:16)
[2021-01-28] MEDS: MORPHINE 4 MG/1 ML VIAL IV PRN ×3 (02:27→21:05)
[2021-01-28 06:27] LABS: Eosinophils % 0.1 % (0.00-10.9); Hematocrit 25.2 VOL% (42.0-52.0); Hemoglobin 7.7 GM/DL (14.0-18.0); Immature Granulocytes % 0.6 %; Immature Granulocytes Absolute 0.06 #; Lymphocytes # 0.6 10*3/uL (1.4-4.0); Lymphocytes % 6.2 % (21.2-54.2); Mean Corpuscular HGB Conc 30.6 GM/DL (32-36); Mean Platelet Volume 10.3 FL (9.6-12.0); Monocytes % 7.8 % (1.7-12.7); NRBC # 0.02 10*3/uL; Neutrophils % 85.3 % (38.7-73.9); Platelet Count 171 T/CUMM (130-400); Red Blood Count 3.15 MC/CUMM (3.8-5.5); Red Cell Distribution Width 26.5 % (9.3-17.3); White Blood Count 9.7 T/CUMM (4-12)
[2021-01-28 06:46] LABS: Hypochromasia 1+; Microcytosis 1+; Platelet Estimate Adequate
[2021-01-28 06:55] LABS: Bilirubin,Total 0.6 MG/DL (0.2-1.0); Calcium 8.3 MG/DL (8.5-10.1); Osmolality,Calculated 292.2 MOS/KG (273-304); Potassium 4.7 MMOL/L (3.5-5.1); Total Protein 7.1 G/DL (6.4-8.2)
[2021-01-28] MEDS: amLODIPine 10 MG TABLET PO SCH (08:24)
[2021-01-28] MEDS: carvediloL 25 MG TABLET PO SCH ×2 (08:24→21:04)
[2021-01-28] MEDS: FAMOTIDINE 20 MG/2 ML VIAL IV SCH (08:25)
[2021-01-28] MEDS: LOSARTAN 25 MG TABLET PO SCH ×2 (08:52→21:04)
[2021-01-28] MEDS: HYDROCORTISONE 100 MG VIAL IV SCH ×2 (08:53→16:18)
[2021-01-28] MEDS: FAMOTIDINE 20 MG TABLET PO SCH (08:53)
[2021-01-28] MEDS: PROMETHAZINE 25 MG/1 ML VIAL IM PRN ×2 (13:21→19:33)
[2021-01-28] MEDS: LORazepam 1 MG TABLET PO PRN (16:17)
[2021-01-29] MEDS: ALBUTEROL/IPRATROPIUM 3 ML NEB RESP TX SCH ×4 (00:14→19:04)
[2021-01-29] MEDS: HYDROCORTISONE 100 MG VIAL IV SCH ×3 (01:50→16:20)
[2021-01-29] MEDS: PROMETHAZINE 25 MG/1 ML VIAL IM PRN ×3 (02:57→16:20)
[2021-01-29] MEDS: MORPHINE 4 MG/1 ML VIAL IV PRN ×3 (02:58→16:20)
[2021-01-29 05:57] LABS: Eosinophils % 0.1 % (0.00-10.9); Hematocrit 26.3 VOL% (42.0-52.0); Hemoglobin 7.7 GM/DL (14.0-18.0); Immature Granulocytes % 1.1 %; Immature Granulocytes Absolute 0.09 #; Lymphocytes # 0.6 10*3/uL (1.4-4.0); Lymphocytes % 7.8 % (21.2-54.2); Mean Corpuscular HGB Conc 29.3 GM/DL (32-36); Mean Corpuscular Volume 82.7 FL (87-102); Mean Platelet Volume 10.4 FL (9.6-12.0); Monocytes % 11.5 % (1.7-12.7); NRBC # 0.05 10*3/uL; Neutrophils % 79.5 % (38.7-73.9); Platelet Count 208 T/CUMM (130-400); Red Blood Count 3.18 MC/CUMM (3.8-5.5); Red Cell Distribution Width 26.7 % (9.3-17.3); White Blood Count 8.2 T/CUMM (4-12)
[2021-01-29 06:12] LABS: Calcium 8.3 MG/DL (8.5-10.1); Osmolality,Calculated 282.4 MOS/KG (273-304)
[2021-01-29] MEDS ORDERED: PANTOPRAZOLE 40 MG TABLET PO SCH (06:30)
[2021-01-29 07:28] LABS: Total Protein (Chem) 7.5 G/DL (6.4-8.3)
[2021-01-29] MEDS: FAMOTIDINE 20 MG TABLET PO SCH (08:33)
[2021-01-29] MEDS: carvediloL 25 MG TABLET PO SCH ×2 (08:33→20:36)
[2021-01-29] MEDS: LOSARTAN 25 MG TABLET PO SCH ×2 (08:33→20:36)
[2021-01-29] MEDS: amLODIPine 10 MG TABLET PO SCH (08:33)
[2021-01-29] MEDS: LORazepam 1 MG TABLET PO PRN ×2 (09:38→20:52)
[2021-01-29 09:59] LABS: Albumin (SPE) 3.3 G/DL (3.2-5.3); Albumin (SPE) Rel % 44.6 %; Alpha 1 (SPE) 0.4 G/DL (0.1-0.4); Alpha 1 (SPE) Rel % 4.9 %; Alpha 2 (SPE) 0.7 G/DL (0.4-1.0); Alpha 2 (SPE) Rel % 9.2 %; Beta (SPE) 0.5 G/DL (0.5-1.1); Beta (SPE) Rel % 6.8 %; Gamma (SPE) 2.6 G/DL (0.7-1.7); Gamma (SPE) Rel % 34.5 %
[2021-01-29] MEDS: ONDANSETRON 4 MG/2 ML VIAL IV PRN (14:38)
[2021-01-29 23:27] VITALS: BP 174/14
[2021-01-30] MEDS: HYDROCORTISONE 100 MG VIAL IV SCH (00:57)
[2021-01-30] MEDS: ALBUTEROL/IPRATROPIUM 3 ML NEB RESP TX SCH (00:57)
== END 2021-01-29 22:46 | disposition expired | DRG 207 ==
LOC: EDUNIT# → EDBD → N.ED 18:47 → N.EDINP 18:47 → N.CC 01-22 01:34 → SUATTDRO 01-22 03:24 → N.5E 01-27 12:01
PROVIDERS: ADMIT Internal Medicine; ATTEND Internal Medicine
PROC: IRTHORA (2021-01-24 15:07)